=== PATIENT | female | born 1950 | race African-American/Black ===

== ENCOUNTER 2016-05-28 12:26 | Emergency (ER) | payer MEDICARE, OTHER ==
[~2016-05-28 12:26] MED LIST: Nitroglycerin 0.4 MG TAB 1 EACH ONE
[2016-05-28] MEDS ORDERED: Nitroglycerin 0.4 MG TAB 1 EACH ONE (13:31)
[2016-05-28] MEDS ORDERED: Acetaminophen 325 MG TAB ONE (13:31)
[2016-05-28] MEDS ORDERED: Nitroglycerin 2% Ointment 1 INCH/1 GM Packet ONE (13:31)
[2016-05-28 14:11] LABS: #Basophils 0.1 thou/uL (0.0-0.2); #Eosinphils 0.2 thou/uL (0.0-0.7); #Lymphocytes 2.3 thou/uL (1.20-3.40); #Monocytes 0.6 thou/uL (0.11-0.59); #Neutrophils 2.8 thou/uL (1.40-6.50); %Basophils 2.1 % (0.0-1.0); %Eosinophils 2.8 % (0.0-10.0); %Lymphocytes 38.1 % (21.0-51.0); Hemoglobin 15.8 g/dL (12.0-16.0); Mean Corpuscular HGB CONC 32.4 g/dL (32.0-36.0); Mean Corpuscular Hemoglobin 28.9 pg (27.0-31.0); Mean Corpuscular Volume 89.4 fl (81.0-99.0); Mean Platelet Volume 9.2 fL (7.4-10.4); Platelet Count 221 thou/uL (130-400); RBC Distribution Width 14.6 % (11.5-14.5); Red Blood Cell (RBC) Count 5.47 mill/uL (4.20-5.40)
--- NOTE | 2016-05-28 14:13 | CT ---
NONCONTRAST HEAD CT HISTORY: Headache. COMPARISON: 05/08/2014 TECHNIQUE: A noncontrast head CT is performed from the skull base to the skull vertex. FINDINGS: No parenchymal hemorrhage. No extraaxial hematoma. No midline shift. The basilar cisterns are pat ent. Brain volume is age appropriate. Cortical nicholson white matter differentiation is preserved. The ventricles and sulci are patent and symmetric. Adequate aeration of the sinuses and mastoid air cells. Atherosclerosis of the cavernous carotid ar teries. Intact calvarium. IMPRESSION: No acute intracranial process. POS: HUGO
[2016-05-28 14:15] LABS: ALT (SGPT) 15 U/L (0-55); Albumin 3.7 g/dL (3.4-4.8); Alkaline Phosphatase 87 U/L (40-150); Anion Gap 18 mmol/L (10-20); BUN (Urea Nitrogen) 16 mg/dL (9.8-20.1); Bilirubin, Total 0.5 mg/dL (0.2-1.2); Calc. Creatinine Clearance 0 mL/min (70-130); Calcium 9.6 mg/dL (7.8-10.44); Carbon Dioxide 24 mmol/L (23-31); Chloride 103 mmol/L (98-107); Estimated GFR-MDRD 73; Globulin 3.4 g/dL (2.4-3.5); Glucose 86 mg/dL (80-115); Potassium 4.2 mmol/L (3.5-5.1); Protein, Total 7.1 g/dL (5.8-8.1); Sodium 141 mmol/L (136-145)
[2016-05-28 14:18] LABS: AST (SGOT) 21 U/L (5-34)
--- NOTE | 2016-05-28 14:59 | ERRECORD ---
[facility] EMERGENCY RECORD HPI HEADACHE (13:40 LHOD) CHIEF COMPLAINT: Patient presents for evaluation of headache. HISTORIAN: History provided by patient. TIME COURSE: MONDAY ONSET OF DIZZINESS. REPORTS SHE FELL AND STRUCK HER HEAD ON . REPORTS OFF AND ON DIFFUSE MORAN. NO NAUSEA OR VOMITING. REPORTS SHE HAS NOT MISSED BP MEDS. LAST TOOK AT 7-8AM TODAY. PAST MEDICAL HISTORY MEDICAL HISTORY: Past medical history includes cardiac history, coronary artery disease, myocardial infarction, Treated with stent placement, Number of stents: unknown, most recent stent placed to right leg 10/02/12, Past medical history includes history of hyperlipidemia, high cholesterol, currently being treated, Past medical history includes history of hypertension, which has been treated, Patient is compliant, Past medical history includes pulmonary disease, asthma, Notes: COPD w/home neb. (12:47 SCHI) FEMALE SURGICAL HISTORY: Stents placed to bilateral legs. Unknown number of cardiac stents placed, Surgical history of orthopedic surgery, Left hip replacement x 2, Surgical history of tubal ligation. (12:47 SCHI) SOCIAL HISTORY: Patient drinks every day, Patient denies drug use, Patient currently uses tobacco, smokes cigarettes, Patient smokes 1/2 packs per day, Lives at home, alone, Patient denies drug use,. (12:47 SCHI) NOTES: Nursing records reviewed. (12:48 LHOD) KNOWN ALLERGIES No Known Drug Allergies CURRENT MEDICATIONS (13:06 SCHI) lisinopril-hydrochlorothiazide: TABLET : Strength - 20 mg-25 mg : ORAL Patient Dose: 2 times a day. isosorbide mononitrate: TABLET, EXTENDED RELEASE 24 HR : Strength - 30 mg : ORAL Patient Dose: 1 cap(s) Oral once a day. potassium chloride: TABLET, EXT RELEASE, PARTICLES/CRYSTALS : Strength - 20 mEq : ORAL Patient Dose: once a day. Lyrica: CAPSULE : Strength - 100 mg : ORAL Patient Dose: 25 mg Oral 2 times a day. meTOPROLOL tartrate: TABLET : Strength - 25 mg : ORAL Patient Dose: 1 tab(s) Oral 2 times a day. pravastatin: TABLET : Strength - 40 mg : ORAL Patient Dose: once a day (at bedtime). VITAL SIGNS &a-1R&a+25V*p+0X*f2590M*c152B*c15G*c2P*p-0X&a-25V&a+1RName: Candace Upton : F66 MedRec: [id number] AcctNum: [id number] Prepared: Sat May 28, 2016 14:57 by Interface Page 1 of 2 pMD [facility] EMERGENCY RECORD VITAL SIGNS: BP: 192/80, Pulse: 58, Resp: 20, Temp: 98.1 (Tympanic), Pain: 8 (Constant), O2 sat: 99 on Room Air, Time: 05/28/2016 12:44. (12:44 SCHI) BP: 203/80 (Left Arm), Time: 05/28/2016 12:47. (12:47 SCHI) BP: 197/79, Pulse: 53, Resp: 20, O2 sat: 96 on Room Air, Time: 05/28/2016 13:06. (13:06 SCHI) BP: 219/83, Time: 05/28/2016 13:45. (13:45 SCHI) BP: 208/80, Time: 05/28/2016 13:50. (13:50 SCHI) BP: 188/78, Pulse: 52, Resp: 18, Pain: 4, O2 sat: 97 on Room Air, Time: 05/28/2016 14:08. (14:08 SCHI) BP: 181/73, Pulse: 69, Time: 05/28/2016 14:14. (14:14 SCHI) BP: 185/75, Pulse: 50, Resp: 20, Temp: 98.1 (Tympanic), Pain: 3, O2 sat: 97 on Room Air, Time: 05/28/2016 14:39. (14:39 SCHI) RADIOLOGYINTERPRETATION (13:43 LHOD) HEAD: Head CT negative, without contrast. MEDICATION ADMINISTRATION SUMMARY Drug Name: nitroglycerin sublingual, Dose Ordered: 0.4 mg, Route: Sublingual, Status: Given, Time: 14:08 05/28/2016, Drug Name: Nitro-Bid transdermal, Dose Ordered: 1 inch, Route: Topical, Status: Given, Time: 13:49 05/28/2016, Drug Name: nitroglycerin sublingual, Dose Ordered: 0.4 mg, Route: Sublingual, Status: Given, Time: 13:47 05/28/2016, Drug Name: Tylenol, Dose Ordered: 650 mg, Route: Oral, Status: Given, Time: 13:40 05/28/2016, Detailed record available in Medication Service section. DOCTOR NOTES (14:33 LHOD) TEXT: 1433--LISINOPRIL/HCTZ 20MG GIVEN NOW. PROBLEM LIST No recorded problems DIAGNOSIS (14:34 LHOD) FINAL: PRIMARY: UNCONTROLLED HYPERTENSION WITH HEADACHE AND DIZZINESS. PRESCRIPTION No recorded prescriptions DISPOSITION PATIENT: Disposition Type: Discharge, Disposition: *Discharge Home, Condition: Good. (14:34 LHOD) Patient left the department. (14:54 SCHI) Lara: LHOD=MD Lisa, Frank SCHI=DEBBIE Hsuton, Lisbetinda &a-1R&a+25V*p+0X*[id number]*c152B*c15G*c2P*p-0X&a-25V&a+1RName: Candace Upton : 1950 F66 MedRec: [id number] AcctNum: [id number] Prepared: Vasiliy May 28, 2016 14:57 by Interface Page 2 of 2 pMD MTDD
--- NOTE | 2016-05-28 15:02 | ERRECORD ---
[facility] EMERGENCY RECORD HPI HEADACHE (13:40 LHOD) CHIEF COMPLAINT: Patient presents for evaluation of headache. HISTORIAN: History provided by patient. TIME COURSE: MONDAY ONSET OF DIZZINESS. REPORTS SHE FELL AND STRUCK HER HEAD ON . REPORTS OFF AND ON DIFFUSE MORAN. NO NAUSEA OR VOMITING. REPORTS SHE HAS NOT MISSED BP MEDS. LAST TOOK AT 7-8AM TODAY. ROS (15:28 LHOD) CONSTITUTIONAL: Historian denies fever. CARDIOVASCULAR: Historian denies chest pain, denies edema. RESPIRATORY: Historian denies cough, denies shortness of breath. GI: Historian denies abdominal pain, denies nausea, denies vomiting. MUSCULOSKELETAL: Historian denies back pain, denies neck pain. SKIN: Historian denies rash. NEUROLOGIC: Historian reports dizziness, reports headache. HEMO/LYMPHATIC: Historian denies easy bruising. NOTES: All systems reviewed, negative except as described above. PAST MEDICAL HISTORY MEDICAL HISTORY: Past medical history includes cardiac history, coronary artery disease, myocardial infarction, Treated with stent placement, Number of stents: unknown, most recent stent placed to right leg 10/02/12, Past medical history includes history of hyperlipidemia, high cholesterol, currently being treated, Past medical history includes history of hypertension, which has been treated, Patient is compliant, Past medical history includes pulmonary disease, asthma, Notes: COPD w/home neb. (12:47 SCHI) FEMALE SURGICAL HISTORY: Stents placed to bilateral legs. Unknown number of cardiac stents placed, Surgical history of orthopedic surgery, Left hip replacement x 2, Surgical history of tubal ligation. (12:47 SCHI) SOCIAL HISTORY: Patient drinks every day, Patient denies drug use, Patient currently uses tobacco, smokes cigarettes, Patient smokes 1/2 packs per day, Lives at home, alone, Patient denies drug use,. (12:47 SCHI) NOTES: Nursing records reviewed. (12:48 LHOD) KNOWN ALLERGIES No Known Drug Allergies CURRENT MEDICATIONS (13:06 SCHI) lisinopril-hydrochlorothiazide: TABLET : Strength - 20 mg-25 mg : ORAL Patient Dose: 2 times a day. isosorbide mononitrate: TABLET, EXTENDED RELEASE 24 HR : Strength - 30 mg : ORAL Patient Dose: 1 cap(s) Oral once a day. potassium chloride: &a-1R&a+25V*p+0X*[id number]*c152B*c15G*c2P*p-0X&a-25V&a+1RName: Candace Upton : F66 MedRec: [id number] AcctNum: [id number] Prepared: Sat May 28, 2016 15:37 by Interface Page 1 of 3 pMD [facility] EMERGENCY RECORD TABLET, EXT RELEASE, PARTICLES/CRYSTALS : Strength - 20 mEq : ORAL Patient Dose: once a day. Lyrica: CAPSULE : Strength - 100 mg : ORAL Patient Dose: 25 mg Oral 2 times a day. meTOPROLOL tartrate: TABLET : Strength - 25 mg : ORAL Patient Dose: 1 tab(s) Oral 2 times a day. pravastatin: TABLET : Strength - 40 mg : ORAL Patient Dose: once a day (at bedtime). VITAL SIGNS VITAL SIGNS: BP: 192/80, Pulse: 58, Resp: 20, Temp: 98.1 (Tympanic), Pain: 8 (Constant), O2 sat: 99 on Room Air, Time: 05/28/2016 12:44. (12:44 SCHI) BP: 203/80 (Left Arm), Time: 05/28/2016 12:47. (12:47 SCHI) BP: 197/79, Pulse: 53, Resp: 20, O2 sat: 96 on Room Air, Time: 05/28/2016 13:06. (13:06 SCHI) BP: 219/83, Time: 05/28/2016 13:45. (13:45 SCHI) BP: 208/80, Time: 05/28/2016 13:50. (13:50 SCHI) BP: 188/78, Pulse: 52, Resp: 18, Pain: 4, O2 sat: 97 on Room Air, Time: 05/28/2016 14:08. (14:08 SCHI) BP: 181/73, Pulse: 69, Time: 05/28/2016 14:14. (14:14 SCHI) BP: 185/75, Pulse: 50, Resp: 20, Temp: 98.1 (Tympanic), Pain: 3, O2 sat: 97 on Room Air, Time: 05/28/2016 14:39. (14:39 SCHI) PHYSICAL EXAM (15:29 LHOD) CONSTITUTIONAL: Vital Signs Reviewed, Patient afebrile, Pulse, bradycardic, Blood pressure, hypertensive, Respiratory rate normal, Patient appears non toxic, Patient appears, in moderate pain distress, Patient alert and oriented to person, place and time. HEAD: Head exam included findings of head atraumatic. EYES: Pupils equally round and reactive to light, Extraocular muscles intact, Conjunctiva, injected bilaterally. ENT: Ear exam normal, Pharynx exam normal. NECK: Neck exam included findings of normal range of motion, Trachea midline, no carotid bruits. RESPIRATORY CHEST: Respiratory exam included findings of no respiratory distress, Breath sounds clear. CARDIOVASCULAR: Cardiovascular exam included findings of heart rate regular rate and rhythm, Heart sounds normal. ABDOMEN FEMALE: Abdominal exam included findings of abdomen nontender. BACK: Back exam normal. UPPER EXTREMITY: Upper extremity exam normal. LOWER EXTREMITY: Lower extremity exam normal. NEURO: Neuro exam findings include patient oriented to person, place and time, Speech normal, Memory normal, Cranial nerves intact, &a-1R&a+25V*p+0X*d5294D*c152B*c15G*c2P*p-0X&a-25V&a+1RName: Candace Upton : F66 MedRec: [id number] AcctNum: [id number] Prepared: Sat May 28, 2016 15:37 by Interface Page 2 of 3 pMD [facility] EMERGENCY RECORD no focal motor deficits, no focal sensory deficits, no cerebellar deficits, no nystagmus. SKIN: no rash. EKG INTERPRETATION (15:31 LHOD) 12 LEAD EKG INTERPRETATION: 12 lead EKG interpreted by Emergency Department Physician at time of study, 12 lead EKG shows, sinus bradycardia, Rate (beats per minute): 56, with no ectopics, T waves normal, [place], left, LAE, POOR R WAVE PROGRESSION ANT. RADIOLOGYINTERPRETATION (13:43 LHOD) HEAD: Head CT negative, without contrast. MEDICATION ADMINISTRATION SUMMARY Drug Name: nitroglycerin sublingual, Dose Ordered: 0.4 mg, Route: Sublingual, Status: Given, Time: 14:08 05/28/2016, Drug Name: Nitro-Bid transdermal, Dose Ordered: 1 inch, Route: Topical, Status: Given, Time: 13:49 05/28/2016, Drug Name: nitroglycerin sublingual, Dose Ordered: 0.4 mg, Route: Sublingual, Status: Given, Time: 13:47 05/28/2016, Drug Name: Tylenol, Dose Ordered: 650 mg, Route: Oral, Status: Given, Time: 13:40 05/28/2016, Detailed record available in Medication Service section. DOCTOR NOTES (14:33 LHOD) TEXT: 1433--LISINOPRIL/HCTZ 20MG GIVEN NOW. PT STATES SHE WAS NOT AWARE SHE WAS SUPPOSE TO TAKE LISINOPRIL AND METOPROLOL BID. SHE HAS MEDS AND WILL DO SO. PROBLEM LIST No recorded problems DIAGNOSIS (14:34 LHOD) FINAL: PRIMARY: UNCONTROLLED HYPERTENSION WITH HEADACHE AND DIZZINESS. PRESCRIPTION No recorded prescriptions DISPOSITION PATIENT: Disposition Type: Discharge, Disposition: *Discharge Home, Condition: Good. (14:34 LHOD) Patient left the department. (14:54 SCHI) Lara: LHOD=MD Lisa, Frank [facility] Huston, Luis Carlos &a-1R&a+25V*p+0X*m2690T*c152B*c15G*c2P*p-0X&a-25V&a+1RName: Candace Upton : F66 MedRec: [id number] AcctNum: [id number] Prepared: Vasiliy May 28, 2016 15:37 by Interface Page 3 of 3 pMD MTDD
--- NOTE | 2016-05-28 15:05 | PICIS ---
[facility] EMERGENCY RECORD TRIAGE (12:46 SCHI) TRIAGE NOTES: BP ELEVATED. (12:46 SCHI) PATIENT: NAME: Candace Upton, AGE: 66, GENDER: female, : Mon1950, TIME OF GREET: Sat May 28, 2016 12:26, PREFERRED LANGUAGE: [place]ican, ETHNICITY: Not or , FALL RISK: NO, ECODE BILLING MAP: [facility], SSN: [id number], Zip Code: [address], KG WEIGHT: 72.57, PHONE: , , , PERSON ID: [id number], PCP: MD RICCI IMELDA. (12:46 SCHI) COMPLAINT: BP HIGH. (12:46 SCHI) ADMISSION: URGENCY: 4 Non Urgent, ADMISSION SOURCE: Home, TRANSPORT: [facility], BED: ED -04. (12:46 SCHI) ASSESSMENT: Assessment: ALERT AND ORIENTED X 4, SKIN WARM AND DRY RESP EVEN AND UNLABORED,, Symptoms began COUPLE OF DAYS. (12:47 SCHI) PAIN: Patient complains of pain described as, aching, on a scale 0-10 patient rates pain as 8, Location HEADACHE,, Pain is intermittent. (12:47 SCHI) IMMUNIZATIONS: Flu vaccine not up to date. (12:47 SCHI) TRIAGE SCREENING: Patient denies suicidal ideation, Patient denies presence of domestic violence. (12:47 SCHI) PROVIDERS: TRIAGE NURSE: Luis Carlos Huston RN. (12:46 SCHI) VITAL SIGNS: BP 192/80, Pulse 58, Resp 20, Temp 98.1, (Tympanic), Pain 8, (Constant), O2 Sat 99, on Room Air, Time 05/28/2016 12:44. (12:44 SCHI) KNOWN ALLERGIES No Known Drug Allergies CURRENT MEDICATIONS (13:06 SCHI) lisinopril-hydrochlorothiazide: TABLET : Strength - 20 mg-25 mg : ORAL Patient Dose: 2 times a day. isosorbide mononitrate: TABLET, EXTENDED RELEASE 24 HR : Strength - 30 mg : ORAL Patient Dose: 1 cap(s) Oral once a day. potassium chloride: TABLET, EXT RELEASE, PARTICLES/CRYSTALS : Strength - 20 mEq : ORAL Patient Dose: once a day. Lyrica: CAPSULE : Strength - 100 mg : ORAL Patient Dose: 25 mg Oral 2 times a day. meTOPROLOL tartrate: TABLET : Strength - 25 mg : ORAL Patient Dose: 1 tab(s) Oral 2 times a day. pravastatin: TABLET : Strength - 40 mg : ORAL Patient Dose: once a day (at bedtime). VITAL SIGNS VITAL SIGNS: BP: 192/80, Pulse: 58, Resp: 20, Temp: 98.1 &a-1R&a+25V*p+0X*e3335G*c152B*c15G*c2P*p-0X&a-25V&a+1RName: Candace Upton : F66 MedRec: [id number] AcctNum: [id number] Prepared: Sat May 28, 2016 15:44 by Interface Page 1 of 9 pMD [facility] EMERGENCY RECORD (Tympanic), Pain: 8 (Constant), O2 sat: 99 on Room Air, Time: 05/28/2016 12:44. (12:44 SCHI) BP: 203/80 (Left Arm), Time: 05/28/2016 12:47. (12:47 SCHI) BP: 197/79, Pulse: 53, Resp: 20, O2 sat: 96 on Room Air, Time: 05/28/2016 13:06. (13:06 SCHI) BP: 219/83, Time: 05/28/2016 13:45. (13:45 SCHI) BP: 208/80, Time: 05/28/2016 13:50. (13:50 SCHI) BP: 188/78, Pulse: 52, Resp: 18, Pain: 4, O2 sat: 97 on Room Air, Time: 05/28/2016 14:08. (14:08 SCHI) BP: 181/73, Pulse: 69, Time: 05/28/2016 14:14. (14:14 SCHI) BP: 185/75, Pulse: 50, Resp: 20, Temp: 98.1 (Tympanic), Pain: 3, O2 sat: 97 on Room Air, Time: 05/28/2016 14:39. (14:39 SCHI) NURSING ASSESSMENT: CARDIOVASCULAR (13:41 SCHI) CONSTITUTIONAL: Patient arrives ambulatory, Gait steady, History obtained from patient, Patient appears comfortable, Patient cooperative, Patient alert, Oriented to person, place and time, Skin warm, Skin dry, Skin normal in color, Mucous membranes pink, Mucous membranes moist, Patient is well-groomed, Patient complains of ZULEMA BLOOD PRESSURE AND HEADACHE. PAIN: No sudden onset of pain, aching pain, HEADACHE. CARDIOVASCULAR: Cardiovascular assessment findings include heart rate normal, Heart rhythm normal sinus, Heart sounds normal. RESPIRATORY/CHEST: Respiratory assessment findings include respiratory effort easy, Respirations regular, Conversing normally, no signs of distress, Breath sounds clear, no associated cough noted. NOTES: Emotional support needed and given, Patient tolerated procedure well. SAFETY: Side rails up, Cart/Stretcher in lowest position, Hospital ID band on. NURSING ASSESSMENT: FALL RISK (13:39 SCHI) FALL RISK: Fall risk assessment findings include: no history of falls (0), No bed rest greater than 2 days (0), No use of level of consciousness altering agents with mentation or cognitive changes (0), No change in blood pressure (0), No sensory deficits (0), No impaired mobility (0), No neurologic diagnosis (0), No elimination problems (0), No confusion (0), Total score 0. NURSING PROCEDURE: DISCHARGE NOTE (14:50 SCHI) DISCHARGE: Patient discharged to home, ambulating without assistance, family driving, accompanied by other family member, Summary of Care printed/ provided, Patient requested and was provided an electronic copy of Discharge Instructions, Transition record given to patient, Discharge instructions given to patient, Simple or moderate discharge teaching performed, Medication reconciliation form given, Above person(s) verbalized understanding of discharge instructions and follow-up care, Patient treated and evaluated by physician. BELONGINGS: Belongings and valuables with patient at time of discharge include:, Belongings remain with patient, Valuables remain &a-1R&a+25V*p+0X*s9507L*c152B*c15G*c2P*p-0X&a-25V&a+1RName: Candace Upton Seda : F66 MedRec: [id number] AcctNum: [id number] Prepared: Vasiliy May 28, 2016 15:44 by Interface Page 2 of 9 pMD [facility] EMERGENCY RECORD with patient. SAFETY: Side rails up, Cart/Stretcher in lowest position, Family at bedside, Hospital ID band on. NURSING PROCEDURE: EKG CHART (13:41 SCHI) PATIENT IDENTIFIER: Patient actively involved in identification process, Patient's identity verified by patient stating name, Patient's identity verified by patient stating date. EKG: EKG indicated for complaint of palpitations, 12 lead EKG performed on the left chest, done by ALLISON LEWIS. NOTES: Emotional support needed and given, Patient tolerated procedure well. SAFETY: Side rails up, Cart/Stretcher in lowest position, Family at bedside, Hospital ID band on. NURSING PROCEDURE: IV PATIENT IDENITIFIER: Patient actively involved in identification process, Patient's identity verified by patient stating name, Patient's identity verified by patient stating date, Patient's identity verified by hospital ID bracelet. (13:45 SCHI) IV SITE 1: IV therapy indicated for hydration, IV therapy indicated for medication administration, IV established, to the right antecubital, using a 20 gauge catheter, in one attempt, IV site prepped with chloraprep, Saline lock established, Flushed with normal saline (mls): 10, Labs drawn at time of placement, labeled in the presence of the patient and sent to lab. (13:45 SCHI) FOLLOW-UP SITE 1: IV discontinued, due to patient being discharged, catheter intact. (14:50 SCHI) NURSING PROCEDURE: NURSE NOTES (13:39 SCHI) NURSES NOTES: Warm blanket given to patient, Notes: PT PLACED IN GOWN. Notes: all times are approximate due to care being provided, then documented. ORDER DETAILS Order Name: [facility] ED, Status: Done, Time: 13:50 05/28/2016, [facility], - Ordered for: MD Gonzalez Lefayne, - Entered by: MD Gonzalez Lefayne - Sat May 28, 2016 13:04, - Quantity: 1, Order Name: CBC with Differential, Status: Active, Time: 13:04 05/28/2016, User: OD, - Ordered for: MD Gonzalez Lefayne, - Entered by: MD Gonzalez Lefayne - Sat May 28, 2016 13:04, - Quantity: 1, Order Name: Comprehensive Metabolic Panel, Status: Active, Time: 13:04 05/28/2016, User: PATSY, - Ordered for: MD Gonzalez Lefayne, - Entered by: MD Gonzalez Lefayne - Vasiliy May 28, 2016 13:04, &a-1R&a+25V*p+0X*h4414R*c152B*c15G*c2P*p-0X&a-25V&a+1RName: Candace Upton : F66 MedRec: [id number] AcctNum: [id number] Prepared: Sat May 28, 2016 15:44 by Interface Page 3 of 9 pMD [facility] EMERGENCY RECORD - Quantity: 1, Order Name: CT Brain WO Con, Status: Active, Time: 13:04 05/28/2016, User: PATSY, - Ordered for: MD Gonzalez Lefayne, - Entered by: MD Gonzalez Lefayne - Vasiliy May 28, 2016 13:04, - Quantity: 1, Order Name: EKG 12 Lead in Emergency Room, Status: Active, Time: 13:04 05/28/2016, User: PATSY, - Ordered for: MD Gonzalez Lefayne, - Entered by: MD Gonzalez Lefayne - Vasiliy May 28, 2016 13:04, - Quantity: 1, Order Name: SALINE LOCK, Status: Done, Time: 13:50 05/28/2016, User: TALITA, - Ordered for: MD Gonzalez Lefayne, - Entered by: MD Gonzalez Lefayne - Vasiliy May 28, 2016 13:04, - Quantity: 1. MEDICATION ADMINISTRATION SUMMARY Drug Name: nitroglycerin sublingual, Dose Ordered: 0.4 mg, Route: Sublingual, Status: Given, Time: 14:08 05/28/2016, Drug Name: Nitro-Bid transdermal, Dose Ordered: 1 inch, Route: Topical, Status: Given, Time: 13:49 05/28/2016, Drug Name: nitroglycerin sublingual, Dose Ordered: 0.4 mg, Route: Sublingual, Status: Given, Time: 13:47 05/28/2016, Drug Name: Tylenol, Dose Ordered: 650 mg, Route: Oral, Status: Given, Time: 13:40 05/28/2016, Detailed record available in Medication Service section. MEDICATION SERVICE Nitro-Bid transdermal: Order: Nitro-Bid transdermal (nitroglycerin) - Dose: 1 inch : Topical Ordered by: Frank Gonzalez MD Entered by: Frank Gonzalez MD Sat May 28, 2016 13:05 , Acknowledged by: Luis Carlos Huston RN Sat May 28, 2016 13:30 Documented as given by: Luis Carlos Huston RN Sat May 28, 2016 13:49 Patient, Medication, Dose, Route and Time verified prior to administration. : Follow Up : Response assessment performed, No signs or symptoms of allergic reaction noted, REMOVED,. (14:50 SCHI) nitroglycerin sublingual: Order: nitroglycerin sublingual (nitroglycerin) - Dose: 0.4 mg : Sublingual Ordered by: Frank Gonzalez MD Entered by: Frank Gonzalez MD Sat May 28, 2016 13:05 , Acknowledged by: Luis Carlos Huston RN Sat May 28, 2016 13:30 Documented as given by: Luis Carlos Huston RN Sat May 28, 2016 13:47 Patient, Medication, Dose, Route and Time verified prior to administration. Site: Medication administered S.L., Correct patient, time, route, dose and medication confirmed prior to administration, Patient advised of actions and side-effects prior to administration, &a-1R&a+25V*p+0X*d7869Y*c152B*c15G*c2P*p-0X&a-25V&a+1RName: Candace Upton : F66 MedRec: [id number] AcctNum: [id number] Prepared: Sat May 28, 2016 15:44 by Interface Page 4 of 9 pMD [facility] EMERGENCY RECORD Allergies confirmed and medications reviewed prior to administration. nitroglycerin sublingual: Order: nitroglycerin sublingual (nitroglycerin) - Dose: 0.4 mg : Sublingual Ordered by: Frank Gonzalez MD Entered by: Frank Gonzalez MD Sat May 28, 2016 14:07 Documented as given by: Luis Carlos Huston RN Sat May 28, 2016 14:08 Patient, Medication, Dose, Route and Time verified prior to administration. Site: Medication administered S.L., Correct patient, time, route, dose and medication confirmed prior to administration, Patient advised of actions and side-effects prior to administration, Allergies confirmed and medications reviewed prior to administration. Tylenol: Order: Tylenol (acetaminophen) - Dose: 650 mg : Oral Ordered by: Frank Gonzalez MD Entered by: Frank Gonzalez MD Sat May 28, 2016 13:06 , Acknowledged by: Luis Carlos Huston RN Sat May 28, 2016 13:30 Documented as given by: Luis Carlos Huston RN Sat May 28, 2016 13:40 Patient, Medication, Dose, Route and Time verified prior to administration. Site: Medication administered P.O., Correct patient, time, route, dose and medication confirmed prior to administration, Patient advised of actions and side-effects prior to administration, Allergies confirmed and medications reviewed prior to administration. HPI HEADACHE (13:40 LHOD) CHIEF COMPLAINT: Patient presents for evaluation of headache. HISTORIAN: History provided by patient. TIME COURSE: MONDAY ONSET OF DIZZINESS. REPORTS SHE FELL AND STRUCK HER HEAD ON . REPORTS OFF AND ON DIFFUSE MORAN. NO NAUSEA OR VOMITING. REPORTS SHE HAS NOT MISSED BP MEDS. LAST TOOK AT 7-8AM TODAY. ROS (15:28 LHOD) CONSTITUTIONAL: Historian denies fever. CARDIOVASCULAR: Historian denies chest pain, denies edema. RESPIRATORY: Historian denies cough, denies shortness of breath. GI: Historian denies abdominal pain, denies nausea, denies vomiting. MUSCULOSKELETAL: Historian denies back pain, denies neck pain. SKIN: Historian denies rash. NEUROLOGIC: Historian reports dizziness, reports headache. HEMO/LYMPHATIC: Historian denies easy bruising. NOTES: All systems reviewed, negative except as described above. PAST MEDICAL HISTORY MEDICAL HISTORY: Past medical history includes cardiac history, coronary artery disease, myocardial infarction, Treated with stent placement, Number of stents: unknown, most recent stent placed to right leg 10/02/12, Past medical history includes history of &a-1R&a+25V*p+0X*b6144W*c152B*c15G*c2P*p-0X&a-25V&a+1RName: Candace Upton : F66 MedRec: [id number] AcctNum: [id number] Prepared: Vasiliy May 28, 2016 15:44 by Interface Page 5 of 9 pMD [facility] EMERGENCY RECORD hyperlipidemia, high cholesterol, currently being treated, Past medical history includes history of hypertension, which has been treated, Patient is compliant, Past medical history includes pulmonary disease, asthma, Notes: COPD w/home neb. (12:47 SCHI) FEMALE SURGICAL HISTORY: Stents placed to bilateral legs. Unknown number of cardiac stents placed, Surgical history of orthopedic surgery, Left hip replacement x 2, Surgical history of tubal ligation. (12:47 SCHI) SOCIAL HISTORY: Patient drinks every day, Patient denies drug use, Patient currently uses tobacco, smokes cigarettes, Patient smokes 1/2 packs per day, Lives at home, alone, Patient denies drug use,. (12:47 SCHI) NOTES: Nursing records reviewed. (12:48 LHOD) PHYSICAL EXAM (15:29 LHOD) CONSTITUTIONAL: Vital Signs Reviewed, Patient afebrile, Pulse, bradycardic, Blood pressure, hypertensive, Respiratory rate normal, Patient appears non toxic, Patient appears, in moderate pain distress, Patient alert and oriented to person, place and time. HEAD: Head exam included findings of head atraumatic. EYES: Pupils equally round and reactive to light, Extraocular muscles intact, Conjunctiva, injected bilaterally. ENT: Ear exam normal, Pharynx exam normal. NECK: Neck exam included findings of normal range of motion, Trachea midline, no carotid bruits. RESPIRATORY CHEST: Respiratory exam included findings of no respiratory distress, Breath sounds clear. CARDIOVASCULAR: Cardiovascular exam included findings of heart rate regular rate and rhythm, Heart sounds normal. ABDOMEN FEMALE: Abdominal exam included findings of abdomen nontender. BACK: Back exam normal. UPPER EXTREMITY: Upper extremity exam normal. LOWER EXTREMITY: Lower extremity exam normal. NEURO: Neuro exam findings include patient oriented to person, place and time, Speech normal, Memory normal, Cranial nerves intact, no focal motor deficits, no focal sensory deficits, no cerebellar deficits, no nystagmus. SKIN: no rash. LAB INTERPRETATION (15:32 LHOD) INTERPRETATION: I reviewed the lab results, CBC normal, Chemistry normal. EVENTS TRANSFER: Triage to Emergency Main ED -04. (Sat May 28, 2016 12:46 SCHI) Emergency Main ED -04 to -H02. (13:28 SCHI) Emergency Main ED -H02 to -02. (13:29 SCHI) &a-1R&a+25V*p+0X*o1397E*c152B*c15G*c2P*p-0X&a-25V&a+1RName: Candace Upton : F66 MedRec: [id number] AcctNum: [id number] Prepared: Sat May 28, 2016 15:44 by Interface Page 6 of 9 pMD [facility] EMERGENCY RECORD Removed from Emergency Main ED -02. (14:54 SCHI) RADIOLOGYINTERPRETATION (13:43 LHOD) HEAD: Head CT negative, without contrast. EKG INTERPRETATION (15:31 LHOD) 12 LEAD EKG INTERPRETATION: 12 lead EKG interpreted by Emergency Department Physician at time of study, 12 lead EKG shows, sinus bradycardia, Rate (beats per minute): 56, with no ectopics, T waves normal, [place], left, LAE, POOR R WAVE PROGRESSION ANT. DOCTOR NOTES (14:33 LHOD) TEXT: 1433--LISINOPRIL/HCTZ 20MG GIVEN NOW. PT STATES SHE WAS NOT AWARE SHE WAS SUPPOSE TO TAKE LISINOPRIL AND METOPROLOL BID. SHE HAS MEDS AND WILL DO SO. PROBLEM LIST No recorded problems DIAGNOSIS (14:34 LHOD) FINAL: PRIMARY: UNCONTROLLED HYPERTENSION WITH HEADACHE AND DIZZINESS. DISPOSITION PATIENT: Disposition Type: Discharge, Disposition: *Discharge Home, Condition: Good. (14:34 LHOD) Patient left the department. (14:54 SCHI) INSTRUCTION (14:35 LHOD) DISCHARGE: HYPERTENSION, ESTABLISHED, OUT OF CONTROL. FOLLOWUP: MD RADHAMES, P[place], [facility], [address] [place] [id number], [phone], Follow up with Primary Care Physician in 2-3 days. SPECIAL: TAKE YOUR LISINOPRIL / HCTZ TWICE PER DAY, BUT GIVEN ADDITIONAL DOSE IN ER, SO WAIT UNTIL TOMORROW TO RESUME TWICE PER DAY. *RETURN IF WORSE Follow-up with your PCP. PRESCRIPTION No recorded prescriptions IMAGING (14:52 SCHI) *DISCHARGE INSTRUCTIONS RECEIPT: Image captured from scanner. *SUPPLY CHARGE SHEET: Image captured from scanner. ADMIN DIGITAL SIGNATURE: DEBBIE Huston, Luis Carlos. (14:54 [facility] MD Lisa, Frank. (15:33 LHOD) &a-1R&a+25V*p+0X*f1303M*c152B*c15G*c2P*p-0X&a-25V&a+1RName: Candace Upton : F66 MedRec: [id number] AcctNum: [id number] Prepared: Sat May 28, 2016 15:44 by Interface Page 7 of 9 pMD [facility] EMERGENCY RECORD RESULTS RADIOLOGY: CT Brain WO Con Observe DT: Sat May 28, 2016 13:06, BR NONCONTRAST HEAD CT HISTORY: Headache. COMPARISON: 05/08/2014 TECHNIQUE: A noncontrast head CT is performed from the skull base to the skull vertex. FINDINGS: No parenchymal hemorrhage. No extraaxial hematoma. No midline shift. The basilar cisterns are pat ent. Brain volume is age appropriate. Cortical nicholson white matter differentiation is preserved. The ventricles and sulci are patent and symmetric. Adequate aeration of the sinuses and mastoid air cells. Atherosclerosis of the cavernous carotid ar teries. Intact calvarium. IMPRESSION: No acute intracranial process. POS: [facility] . (14:28 LHOD) LABORATORY: Comprehensive Metabolic Panel Collection DT: Sat May 28, 2016 13:56, Sodium 141 mmol/L, Range (136-145), Potassium 4.2 mmol/L, Range (3.5-5.1), Chloride 103 mmol/L, Range (98-107), Carbon Dioxide 24 mmol/L, Range (23-31), Anion Gap 18 mmol/L, Range (10-20), BUN (Urea Nitrogen) 16 mg/dL, Range (9.8-20.1), Creatinine 0.93 mg/dL, Range (0.6-1.1), Estimated GFR-MDRD 73 , Reference Range for Estimated GFR: Greater than 90, mL/min/1.73 m2 NOTE: The MDRD equation has not been validated for use, with the elderly (over 70 years of age), women, patients with, serious comorbid condition or persons with extremes of body size, muscle, mass, or nutritional status. , Glucose 86 mg/dL, Range (80-115), Calcium 9.6 mg/dL, Range (7.8-10.44), &a-1R&a+25V*p+0X*u9513P*c152B*c15G*c2P*p-0X&a-25V&a+1RName: Candace Upton : F66 MedRec: [id number] AcctNum: [id number] Prepared: [facility] May 28, 2016 15:44 by Interface Page 8 of 9 pMD [facility] EMERGENCY RECORD Bilirubin, Total 0.5 mg/dL, Range (0.2-1.2), Protein, Total 7.1 g/dL, Range (5.8-8.1), NOTE: Plasma values are generally 0.3 to 0.5 g/dL higher than serum values, due to the presence of fibrinogen. , Albumin 3.7 g/dL, Range (3.4-4.8), Globulin 3.4 g/dL, Range (2.4-3.5), *Alb/Glob Ratio 1.1 - L g/dL, Range (1.2-2.2), Alkaline Phosphatase 87 U/L, Range (40-150), AST (SGOT) 21 U/L, Range (5-34), ALT (SGPT) 15 U/L, Range (0-55). (14:20 LHOD) CBC with Differential Collection DT: Sat May 28, 2016 13:56, White Blood Cell (WBC) Count 6.0 thou/uL, Range (4.8-10.8), *Red Blood Cell (RBC) Count 5.47 - H mill/uL, Range (4.20-5.40), Hemoglobin 15.8 g/dL, Range (12.0-16.0), *Hematocrit 48.9 - H %, Range (36.0-47.0), Mean Corpuscular Volume 89.4 fl, Range (81.0-99.0), Mean Corpuscular Hemoglobin 28.9 pg, Range (27.0-31.0), Mean Corpuscular HGB CONC 32.4 g/dL, Range (32.0-36.0), *RBC Distribution Width 14.6 - H %, Range (11.5-14.5), Platelet Count 221 thou/uL, Range (130-400), Mean Platelet Volume 9.2 fL, Range (7.4-10.4), %Neutrophils 47.0 %, Range (42.0-75.0), %Lymphocytes 38.1 %, Range (21.0-51.0), %Monocytes 10.0 %, Range (0.0-10.0), %Eosinophils 2.8 %, Range (0.0-10.0), *%Basophils 2.1 - H %, Range (0.0-1.0), #Neutrophils 2.8 thou/uL, Range (1.40-6.50), #Lymphocytes 2.3 thou/uL, Range (1.20-3.40), *#Monocytes 0.6 - H thou/uL, Range (0.11-0.59), #Eosinphils 0.2 thou/uL, Range (0.0-0.7), #Basophils 0.1 thou/uL, Range (0.0-0.2). (14:20 LHOD) Lara: LHOD=MD Lisa, Frank SANON=DEBBIE Huston, Slinda &a-1R&a+25V*p+0X*a3740L*c152B*c15G*c2P*p-0X&a-25V&a+1RName: Candace Upton : F66 MedRec: [id number] AcctNum: [id number] Prepared: [facility] May 28, 2016 15:44 by Interface Page 9 of 9 pMD MTDD
== END 2016-05-28 14:50 | disposition home or self-care (01) ==
LOC: MADERS 12:26
DX: I10 Essential (primary) hypertension (principal); I25.2 Old myocardial infarction; I25.10 Atherosclerotic heart disease of native coronary artery without angina pectoris; E78.5 Hyperlipidemia, unspecified; E78.00 Pure hypercholesterolemia, unspecified; J44.9 Chronic obstructive pulmonary disease, unspecified; J45.909 Unspecified asthma, uncomplicated; F17.210 Nicotine dependence, cigarettes, uncomplicated; Z79.899 Other long term (current) drug therapy
CPT/HCPCS: 36415; 70450; 80053; 85025; 93005

== ENCOUNTER 2016-08-09 23:05 | Emergency (ER) | payer MEDICARE, MEDICAID ==
[~2016-08-09 23:05] MED LIST changes: +Iopamidol 370 76% 125 ML VIAL FS ONE
[2016-08-09] MEDS ORDERED: Nitroglycerin 0.4 MG TAB 1 EACH ONE (23:18)
[2016-08-09] MEDS ORDERED: Aspirin 325 MG TAB ONE (23:18)
--- NOTE | 2016-08-09 23:34 | RAD ---
AP VIEW OF THE CHEST 08/09/16 Indication: Chest pain. IMPRESSION: No acute cardiopulmonary abnormality. The examination is not appreciably changed from a comparison d ated 01/28/16. POS: [facility]
[2016-08-09] MEDS ORDERED: Metoprolol Tartrate 5 MG/5 ML VIAL ONE (23:35)
[2016-08-09 23:43] LABS: ALT (SGPT) 17 U/L (0-55); AST (SGOT) 17 U/L (5-34); Albumin 3.7 g/dL (3.4-4.8); Alkaline Phosphatase 96 U/L (40-150); Anion Gap 15 mmol/L (10-20); BUN (Urea Nitrogen) 16 mg/dL (9.8-20.1); Bilirubin, Total 0.4 mg/dL (0.2-1.2); Calc. Creatinine Clearance 0 mL/min (70-130); Calcium 9.4 mg/dL (7.8-10.44); Carbon Dioxide 24 mmol/L (23-31); Chloride 105 mmol/L (98-107); Estimated GFR-MDRD 70; Globulin 3.3 g/dL (2.4-3.5); Glucose 130 mg/dL (80-115); Potassium 3.5 mmol/L (3.5-5.1); Sodium 140 mmol/L (136-145)
[2016-08-09 23:45] LABS: CKMB 0.7 ng/mL (0-6.6); Troponin I 0.018 ng/mL (< 0.028)
[2016-08-09 23:47] LABS: Mean Corpuscular HGB CONC 33.5 g/dL (32.0-36.0); Mean Corpuscular Hemoglobin 29.1 pg (27.0-31.0); Mean Corpuscular Volume 86.8 fL (81.0-99.0); Red Blood Cell (RBC) Count 5.16 mill/uL (4.20-5.40); White Blood Cell (WBC) Count 10.3 thou/uL (4.8-10.8)
[2016-08-09 23:48] LABS: MDiff Complete? YES; Manual Diff?? YES; Platelet Count 258 thou/uL (130-400); RBC Distribution Width 13.9 % (11.5-14.5)
[2016-08-09 23:49] LABS: Eosinophils 3 % (0-10); Lymphocytes 39 % (21-51); Monocytes 3 % (0-10); Neutrophil 55 % (42-75)
[2016-08-09 23:50] LABS: RBC Morphology Normal
[2016-08-10] MEDS ORDERED: Nitroglycerin 2% Ointment 1 INCH/1 GM Packet ONE (00:48)
--- NOTE | 2016-08-10 08:12 | CT ---
PRELIMINARY REPORT/[facility]/EMERGENCY AFTER HOURS PROCEDURE: EXAM: CT Angiography Chest With Intravenous Contrast CLINICAL HISTORY: 66 years old, female; Pain; Chest pain; Left-sided chest pain; Patient HX: Pt. Complaining of chest pain to lt side radiating down lt arm started yesterday got worse today. R/O pe TECHNIQUE: Axial computed tomographic angiography images of the chest with intravenous contrast using pulmonary embolism protocol. CONTRAST: 100 mL of isovue administered intravenously. COMPARISON: No relevant prior studies available. FINDINGS: Pulmonary arteries: Unremarkable. No pulmonary embolism. Aorta: No acute findings. No thoracic aortic aneurysm. Lungs: There are a few small pulmonary nodules measuring up to 5 mm in size, indeterminate. Mild to moderate emphysema. Lungs otherwise clear allowing for motion. Pleural space: Unremarkable. No significant effusion. No pneumothorax. Heart: Unremarkable. No cardiomegaly. No significant pericardial effusion. No evidence of RV dysfunc tion. Bones/joints: No acute fracture. No dislocation. Soft tissues: Unremarkable. Lymph nodes: Unremarkable. No enlarged lymph nodes. Other findings: Cardia megaly. IMPRESSION: No acute findings. Thank you for allowing us to participate in the care of your patient. Dictated and Authenticated by: Terrance Ambrocio MD 08/10/2016 1:23 AM Central Time ([place] \T\ [place]) FINAL REPORT CT PULMONARY ANGIO STUDY: Date: 08/09/16 TECHNIQUE: Multiple axial tomograms obtained through the chest with IV enhancement in arterial phase following pulmonary angio protocol with multiplanar reconstruction and 3D postprocessing. FINDINGS: No evidence of pulmonary embolus. Chronic lung changes. 5.0 mm nodule in the left lung base is stabl e. I am in agreement with the preliminary report issued by [facility]. POS: [facility]
== END 2016-08-10 01:48 | disposition short-term general hospital (02) ==
LOC: MADERS 23:05
DX: R07.9 Chest pain, unspecified (principal); I10 Essential (primary) hypertension; I25.10 Atherosclerotic heart disease of native coronary artery without angina pectoris; I25.2 Old myocardial infarction; E78.5 Hyperlipidemia, unspecified; E78.00 Pure hypercholesterolemia, unspecified; J44.9 Chronic obstructive pulmonary disease, unspecified; J45.909 Unspecified asthma, uncomplicated; F17.210 Nicotine dependence, cigarettes, uncomplicated; Z79.899 Other long term (current) drug therapy
CPT/HCPCS: 71010; 71275; 80053; 82553; 84484; 85025; 85379; 93005; 96374; 96375; J2270

== ENCOUNTER 2016-08-17 09:46 | Outpatient (CLI) | payer MEDICAID, MEDICARE ==
[2016-08-17 10:17] LABS: #Basophils 0.2 thou/uL (0.0-0.2); #Eosinphils 0.3 thou/uL (0.0-0.7); #Lymphocytes 2.1 thou/uL (1.20-3.40); #Monocytes 0.8 thou/uL (0.11-0.59); %Basophils 2.5 % (0.0-1.0); %Eosinophils 5.3 % (0.0-10.0); %Lymphocytes 32.5 % (21.0-51.0); %Monocytes 13.3 % (0.0-10.0); %Neutrophils 46.5 % (42.0-75.0); Hemoglobin 13.6 g/dL (12.0-16.0); Mean Corpuscular HGB CONC 32.8 g/dL (32.0-36.0); Mean Corpuscular Hemoglobin 28.8 pg (27.0-31.0); Mean Platelet Volume 8.8 fL (7.4-10.4); Platelet Count 230 thou/uL (130-400); RBC Distribution Width 13.5 % (11.5-14.5); Red Blood Cell (RBC) Count 4.71 mill/uL (4.20-5.40); White Blood Cell (WBC) Count 6.3 thou/uL (4.8-10.8)
[2016-08-17 10:32] LABS: ALT (SGPT) 15 U/L (0-55); AST (SGOT) 15 U/L (5-34); Albumin 3.5 g/dL (3.4-4.8); Alkaline Phosphatase 85 U/L (40-150); Anion Gap 13 mmol/L (10-20); BUN (Urea Nitrogen) 14 mg/dL (9.8-20.1); Bilirubin, Total 0.3 mg/dL (0.2-1.2); Calc. Creatinine Clearance 0 mL/min (70-130); Calcium 9.6 mg/dL (7.8-10.44); Carbon Dioxide 23 mmol/L (23-31); Cardiac Risk 3.5 (Less than 4.5); Chloride 106 mmol/L (98-107); Cholesterol 151 mg/dL (< 200 Desired); Estimated GFR-MDRD 82; Globulin 3.4 g/dL (2.4-3.5); Glucose 87 mg/dL (80-115); HDL Cholesterol 43 mg/dL (>60 Neg Risk); LDL Cholesterol, Calculated 93 mg/dL; Potassium 3.5 mmol/L (3.5-5.1); Protein, Total 6.9 g/dL (5.8-8.1); Sodium 138 mmol/L (136-145); Triglycerides 74 mg/dL (Less than 150)
[2016-08-17 11:11] LABS: Free T4 (Free Thyroxine) 0.96 ng/dL (0.70-1.48)
== END 2016-08-17 09:47 | disposition home or self-care (01) ==
LOC: MADLABBHPM 09:46
PROVIDERS: ATTEND Family Medicine
DX: E78.2 Mixed hyperlipidemia (principal); I10 Essential (primary) hypertension
CPT/HCPCS: 36415; 80053; 80061; 84439; 84443; 85025

== ENCOUNTER 2017-04-12 11:16 | Outpatient (CLI) | payer MEDICARE, MEDICAID ==
[2017-04-12 12:42] LABS: Hemoglobin A1c 5.5 % (4.0-6.0)
[2017-04-12 12:49] LABS: ALT (SGPT) 16 U/L (8-55); AST (SGOT) 14 U/L (5-34); Albumin 3.7 g/dL (3.4-4.8); Alkaline Phosphatase 79 U/L (40-150); Anion Gap 16 mmol/L (10-20); BUN (Urea Nitrogen) 15 mg/dL (9.8-20.1); Bilirubin, Total 0.4 mg/dL (0.2-1.2); Calc. Creatinine Clearance 0 mL/min (70-130); Carbon Dioxide 25 mmol/L (23-31); Chloride 103 mmol/L (98-107); Cholesterol 157 mg/dl (< 200 Desired); Estimated GFR-MDRD 67; Globulin 3.7 g/dL (2.4-3.5); Glucose 93 mg/dL (80-115); HDL Cholesterol 53 mg/dL (>60 Neg Risk); LDL Cholesterol, Calculated 91 mg/dL; Potassium 3.9 mmol/L (3.5-5.1); Protein, Total 7.4 g/dL (6.0-8.3); Sodium 140 mmol/L (136-145); Triglycerides 64 mg/dL (Less than 150)
--- NOTE | 2017-04-12 13:24 | RAD ---
THREE VIEWS RIGHT SHOULDER: Indication: Chronic right shoulder pain. Comparison: Prior chest radiograph, 08-26-16. FINDINGS: There is moderate AC joint osteoarthrosis. Visualized right lung is clear. There is some degenerative changes seen involving the right greater tuberosity which can be seen with chronic rotator cuff tend inopathy. No definite acute fracture or subluxation is evident. IMPRESSION: 1. 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 2. Degenerative changes seen involving the right greater tuberosity likely related to idiopathic morris ge from rotator cuff tendinopathy. If clinically indicated a follow up MRI of the right shoulder may be helpful to evaluate for rotator cuff disease. POS: [facility]
== END 2017-04-12 11:17 | disposition home or self-care (01) ==
LOC: MADLABBHPM 11:16
PROVIDERS: ATTEND Family Medicine
DX: M25.511 Pain in right shoulder (principal); E78.2 Mixed hyperlipidemia; I10 Essential (primary) hypertension; M19.011 Primary osteoarthritis, right shoulder
CPT/HCPCS: 36415; 80053; 80061; 83036

== ENCOUNTER 2017-05-17 09:02 | Emergency (ER) | payer MEDICARE ==
[2017-05-17] MEDS ORDERED: predniSONE 20 MG TAB ONE (09:42)
== END 2017-05-17 10:21 | disposition home or self-care (01) ==
LOC: MADERS 09:02
DX: J45.901 Unspecified asthma with (acute) exacerbation (principal); I25.10 Atherosclerotic heart disease of native coronary artery without angina pectoris; I10 Essential (primary) hypertension; J44.9 Chronic obstructive pulmonary disease, unspecified; F17.210 Nicotine dependence, cigarettes, uncomplicated
CPT/HCPCS: 94640; 94760; J7506; J7620

== ENCOUNTER 2017-05-27 14:52 | Emergency (ER) | payer MEDICARE, MEDICAID ==
[2017-05-27] MEDS ORDERED: HYDROcodone/Acetaminophen 10/325 mg Tablet ONE (15:22)
[2017-05-27 15:33] LABS: #Basophils 0.1 thou/uL (0.0-0.2); #Eosinphils 0.1 thou/uL (0.0-0.7); #Lymphocytes 2.3 thou/uL (1.20-3.40); #Monocytes 0.7 thou/uL (0.11-0.59); #Neutrophils 2.8 thou/uL (1.40-6.50); %Basophils 1.9 % (0.0-1.0); %Eosinophils 1.4 % (0.0-10.0); %Lymphocytes 38.3 % (21.0-51.0); %Monocytes 12.2 % (0.0-10.0); %Neutrophils 46.2 % (42.0-75.0); Mean Corpuscular HGB CONC 31.2 g/dL (32.0-36.0); Mean Corpuscular Hemoglobin 27.5 pg (27.0-31.0); Mean Corpuscular Volume 88.1 fl (81.0-99.0); Mean Platelet Volume 8.2 fL (7.4-10.4); Platelet Count 290 thou/uL (130-400); RBC Distribution Width 14.5 % (11.5-14.5); Red Blood Cell (RBC) Count 5.46 mill/uL (4.20-5.40)
[2017-05-27 15:44] LABS: Anion Gap 15 mmol/L (10-20); BUN (Urea Nitrogen) 15 mg/dL (9.8-20.1); Calc. Creatinine Clearance 0 mL/min (70-130); Calcium 10.2 mg/dL (7.8-10.44); Carbon Dioxide 25 mmol/L (23-31); Chloride 103 mmol/L (98-107); Estimated GFR-MDRD 64; Glucose 115 mg/dL (80-115); Potassium 3.4 mmol/L (3.5-5.1); Sodium 140 mmol/L (136-145)
[2017-05-27 17:06] LABS: Bilirubin Small (Negative); Blood, Urine Negative (Negative); Clarity Slightly Cloudy (Clear); Glucose, Urine (Dipstick) Negative (Negative); Leukocyte Negative (Negative); Nitrite Negative (Negative); Protein, Urine (Dipstick) Negative (Neg-Trace)
== END 2017-05-27 17:20 | disposition home or self-care (01) ==
LOC: MADERS 14:52
DX: R10.32 Left lower quadrant pain (principal); I25.10 Atherosclerotic heart disease of native coronary artery without angina pectoris; J44.9 Chronic obstructive pulmonary disease, unspecified; F17.210 Nicotine dependence, cigarettes, uncomplicated; I25.2 Old myocardial infarction; Z79.899 Other long term (current) drug therapy
CPT/HCPCS: 36415; 80048; 81003; 85025; 99284

== ENCOUNTER 2017-07-12 18:09 | Emergency (ER) | payer MEDICAID, MEDICARE ==
[2017-07-12 18:39] LABS: #Basophils 0.1 thou/uL (0.0-0.2); #Eosinphils 0.2 thou/uL (0.0-0.7); #Lymphocytes 2.1 thou/uL (1.20-3.40); #Monocytes 0.6 thou/uL (0.11-0.59); #Neutrophils 2.7 thou/uL (1.40-6.50); %Eosinophils 2.9 % (0.0-10.0); %Lymphocytes 37.2 % (21.0-51.0); %Monocytes 10.7 % (0.0-10.0); %Neutrophils 47.2 % (42.0-75.0); Hemoglobin 13.7 g/dL (12.0-16.0); Mean Corpuscular HGB CONC 31.6 g/dL (32.0-36.0); Mean Corpuscular Hemoglobin 28.5 pg (27.0-31.0); Mean Corpuscular Volume 90.2 fl (81.0-99.0); Mean Platelet Volume 8.2 fL (7.4-10.4); Platelet Count 203 thou/uL (130-400); RBC Distribution Width 16.4 % (11.5-14.5); Red Blood Cell (RBC) Count 4.79 mill/uL (4.20-5.40); White Blood Cell (WBC) Count 5.7 thou/uL (4.8-10.8)
[2017-07-12 18:48] LABS: INR-International Normal Ratio 1.1; PTT 25.9 SEC (22.9-36.1); Prothrombin Time 13.8 SEC (12.0-14.7)
[2017-07-12] MEDS ORDERED: Aspirin 325 MG TAB ONE (18:54)
[2017-07-12 19:00] LABS: ALT (SGPT) 12 U/L (8-55); AST (SGOT) 13 U/L (5-34); Albumin 3.7 g/dL (3.4-4.8); Alkaline Phosphatase 87 U/L (40-150); Anion Gap 14 mmol/L (10-20); BUN (Urea Nitrogen) 19 mg/dL (9.8-20.1); Bilirubin, Total 0.3 mg/dL (0.2-1.2); CK (CPK) 30 U/L (29-168); Calc. Creatinine Clearance 0 mL/min (70-130); Calcium 9.5 mg/dL (7.8-10.44); Carbon Dioxide 24 mmol/L (23-31); Chloride 110 mmol/L (98-107); Estimated GFR-MDRD 58; Globulin 3.3 g/dL (2.4-3.5); Glucose 92 mg/dL (80-115); Potassium 3.9 mmol/L (3.5-5.1); Sodium 144 mmol/L (136-145)
[2017-07-12 19:01] LABS: CKMB 0.9 ng/mL (0-6.6); Troponin I 0.023 ng/mL (< 0.028)
--- NOTE | 2017-07-12 19:05 | RAD ---
PORTABLE CHEST: 07/12/17 HISTORY: Chest pain. COMPARISON: 08/26/16. FINDINGS/IMPRESSION: Mild cardiomegaly. Mild vascular engorgement. Mild interstitial prominence could represent mild inter stitial congestion. No confluent infiltrate and no significant effusion. POS: [facility]
[2017-07-12] MEDS ORDERED: Acetaminophen/Codeine 30-300mg Tablet ONE (20:28)
== END 2017-07-12 20:39 | disposition home or self-care (01) ==
LOC: MADERS 18:09
DX: R07.89 Other chest pain (principal); F17.210 Nicotine dependence, cigarettes, uncomplicated; I25.2 Old myocardial infarction; I10 Essential (primary) hypertension; I25.10 Atherosclerotic heart disease of native coronary artery without angina pectoris; J44.9 Chronic obstructive pulmonary disease, unspecified; E78.00 Pure hypercholesterolemia, unspecified; Z79.82 Long term (current) use of aspirin; Z79.899 Other long term (current) drug therapy
CPT/HCPCS: 71045; 80053; 82553; 83880; 84484; 85025; 85610; 85730; 93005; 94760

== ENCOUNTER 2017-10-15 08:17 | Emergency (ER) | payer MEDICAID, MEDICARE ==
[2017-10-15] MEDS ORDERED: cloNIDine 0.1 MG TAB ONE (08:47)
[2017-10-15] MEDS ORDERED: Hydrochlorothiazide 25 MG TAB ONE (08:47)
[2017-10-15] MEDS ORDERED: Amlodipine 5 MG TAB ONE (08:47)
== END 2017-10-15 08:50 | disposition home or self-care (01) ==
LOC: MADERS 08:17
DX: I10 Essential (primary) hypertension (principal); Z79.899 Other long term (current) drug therapy; Z79.82 Long term (current) use of aspirin; E78.5 Hyperlipidemia, unspecified
CPT/HCPCS: 99283

== ENCOUNTER 2018-04-30 16:59 | Emergency (ER) | payer MEDICARE ==
[2018-04-30] MEDS ORDERED: Metoprolol Tartrate 5 MG/5 ML VIAL ONE (17:21)
[2018-04-30] MEDS ORDERED: Morphine 4 MG/ML VIAL ONE (17:21)
[2018-04-30] MEDS ORDERED: predniSONE 20 MG TAB ONE (17:21)
[2018-04-30] MEDS ORDERED: diphenhydrAMINE 50 MG/ML VIAL ONE (17:21)
[2018-04-30 17:45] LABS: ALT (SGPT) 14 U/L (8-55); AST (SGOT) 16 U/L (5-34); Albumin 3.9 g/dL (3.4-4.8); Alkaline Phosphatase 94 U/L (40-150); Anion Gap 16 mmol/L (10-20); BUN (Urea Nitrogen) 15 mg/dL (9.8-20.1); Bilirubin, Total 0.6 mg/dL (0.2-1.2); Calc. Creatinine Clearance 0 mL/min (70-130); Calcium 10.1 mg/dL (7.8-10.44); Carbon Dioxide 24 mmol/L (23-31); Chloride 101 mmol/L (98-107); Estimated GFR-MDRD 40; Globulin 3.9 g/dL (2.4-3.5); Glucose 99 mg/dL (80-115); Lipase 24 U/L (8-78); Potassium 3.7 mmol/L (3.5-5.1); Protein, Total 7.8 g/dL (6.0-8.3); Sodium 137 mmol/L (136-145)
[2018-04-30 17:56] LABS: Band 2 % (5-11); Eosinophils 2 % (0-10); Hemoglobin 15.3 g/dL (12.0-16.0); Lymphocytes 12 % (21-51); MDiff Complete? YES; Mean Corpuscular HGB CONC 31.2 g/dL (32.0-36.0); Mean Corpuscular Hemoglobin 26.9 pg (27.0-31.0); Mean Corpuscular Volume 86.5 fL (78.0-98.0); Mean Platelet Volume 7.9 fL (7.4-10.4); Monocytes 10 % (0-10); Neutrophil 74 % (42-75); PLT Morphology Comment Appears Adequate; Platelet Count 264 thou/uL (130-400); Red Blood Cell (RBC) Count 5.66 mill/uL (4.20-5.40); White Blood Cell (WBC) Count 6.9 thou/uL (4.8-10.8)
--- NOTE | 2018-04-30 18:46 | RAD ---
PORTABLE AP CHEST X-RAY: 04/30/2018 HISTORY: Chest pain. COMPARISON: 07/12/2017 FINDINGS: The cardiac silhouette is magnified by projection and stable in size. There does appear to be mild i nterstitial prominence. There is no consolidation or pleural fluid seen. Vascular calcification is seen in the thoracic aorta. No other interval change. IMPRESSION: Mild interstitial prominence, which could be related to an element of pulmonary edema. POS: TOM
== END 2018-04-30 19:20 | disposition short-term general hospital (02) ==
LOC: MADERS 16:59
DX: R07.89 Other chest pain (principal); I10 Essential (primary) hypertension; E11.9 Type 2 diabetes mellitus without complications; Z79.899 Other long term (current) drug therapy; Z79.82 Long term (current) use of aspirin; Z79.891 Long term (current) use of opiate analgesic
CPT/HCPCS: 71045; 80053; 83690; 83880; 84484; 85025; 93005; 94760; 96374; 96375; J1200; J2270; J7506

== ENCOUNTER 2019-03-24 11:26 | Emergency (ER) | payer MEDICARE ==
--- NOTE | 2019-03-24 11:56 | RAD ---
Portable frontal chest radiograph: 03/24/2019 COMPARISON: 04/30/2018 HISTORY: Chest pain FINDINGS: Stable prominence of the cardiac silhouette and mild interstitial prominence with no pneumo thorax, pleural fluid, focal consolidation, or alveolar edema. IMPRESSION: No significant interval change.
[2019-03-24 12:10] LABS: #Basophils 0.1 thou/uL (0.0-0.2); #Eosinphils 0.2 thou/uL (0.0-0.7); #Lymphocytes 2.1 thou/uL (1.20-3.40); #Monocytes 0.7 thou/uL (0.11-0.59); #Neutrophils 3.1 thou/uL (1.40-6.50); %Basophils 2.2 % (0.0-1.0); %Eosinophils 2.7 % (0.0-10.0); %Monocytes 11.8 % (0.0-10.0); %Neutrophils 49.3 % (42.0-75.0); Hemoglobin 14.7 g/dL (12.0-16.0); Mean Corpuscular Volume 86.7 fL (78.0-98.0); Mean Platelet Volume 7.5 fL (7.4-10.4); Platelet Count 302 thou/uL (130-400); RBC Distribution Width 14.5 % (11.5-14.5); Red Blood Cell (RBC) Count 5.66 mill/uL (4.20-5.40); White Blood Cell (WBC) Count 6.3 thou/uL (4.8-10.8)
[2019-03-24 12:30] LABS: ALT (SGPT) 24 U/L (8-55); AST (SGOT) 21 U/L (5-34); Albumin 3.9 g/dL (3.4-4.8); Alkaline Phosphatase 97 U/L (40-110); Anion Gap 15 mmol/L (10-20); BUN (Urea Nitrogen) 9 mg/dL (9.8-20.1); Bilirubin, Total 0.3 mg/dL (0.2-1.2); Calc. Creatinine Clearance 0 mL/min (70-130); Calcium 9.9 mg/dL (7.8-10.44); Carbon Dioxide 25 mmol/L (23-31); Chloride 103 mmol/L (98-107); Estimated GFR-MDRD 74; Globulin 3.8 g/dL (2.4-3.5); Glucose 87 mg/dL (80-115); Potassium 3.7 mmol/L (3.5-5.1); Protein, Total 7.7 g/dL (6.0-8.3); Sodium 139 mmol/L (136-145)
[2019-03-24] MEDS ORDERED: Ibuprofen 600 MG TAB ONE (13:07)
[2019-03-24] MEDS ORDERED: Acetaminophen 325 MG TAB ONE (13:07)
== END 2019-03-24 14:47 | disposition short-term general hospital (02) ==
LOC: MADERS 11:26
DX: R07.2 Precordial pain (principal); I10 Essential (primary) hypertension; J44.9 Chronic obstructive pulmonary disease, unspecified; I25.10 Atherosclerotic heart disease of native coronary artery without angina pectoris; I25.2 Old myocardial infarction; F17.210 Nicotine dependence, cigarettes, uncomplicated; Z79.899 Other long term (current) drug therapy; Z79.82 Long term (current) use of aspirin; Z79.01 Long term (current) use of anticoagulants
CPT/HCPCS: 36415; 71045; 80053; 82550; 83880; 84484; 85025; 94760

== ENCOUNTER 2019-04-18 10:29 | Outpatient (CLI) | payer MEDICARE ==
[2019-04-18 10:54] LABS: Anion Gap 15 mmol/L (10-20); BUN (Urea Nitrogen) 13 mg/dL (9.8-20.1); Calc. Creatinine Clearance 0 mL/min (70-130); Calcium 9.9 mg/dL (7.8-10.44); Carbon Dioxide 24 mmol/L (23-31); Chloride 107 mmol/L (98-107); Estimated GFR-MDRD 66; Glucose 85 mg/dL (80-115); Sodium 140 mmol/L (136-145)
[2019-04-18 10:55] LABS: Potassium 5.6 mmol/L (3.5-5.1)
== END 2019-04-18 10:30 | disposition home or self-care (01) ==
LOC: MADLABBHPM 10:29
PROVIDERS: ATTEND Family Medicine
DX: I10 Essential (primary) hypertension (principal)
CPT/HCPCS: 36415; 80048

== ENCOUNTER 2019-04-22 13:35 | Outpatient (CLI) | payer MEDICARE ==
[2019-04-22 14:09] LABS: Anion Gap 13 mmol/L (10-20); BUN (Urea Nitrogen) 7 mg/dL (9.8-20.1); Calc. Creatinine Clearance 0 mL/min (70-130); Calcium 9.5 mg/dL (7.8-10.44); Carbon Dioxide 24 mmol/L (23-31); Chloride 109 mmol/L (98-107); Estimated GFR-MDRD 86; Glucose 85 mg/dL (80-115); Sodium 142 mmol/L (136-145)
== END 2019-04-22 13:36 | disposition home or self-care (01) ==
LOC: MADLABBHPM 13:35
PROVIDERS: ATTEND Family Medicine
DX: E87.5 Hyperkalemia (principal)
CPT/HCPCS: 36415; 80048

== ENCOUNTER 2020-03-11 15:22 | Emergency (ER) | payer MEDICARE ==
[~2020-03-11 15:22] MED LIST changes: -Nitroglycerin 0.4 MG TAB 1 EACH ONE
[2020-03-11] MEDS ORDERED: Naproxen 500 MG TAB ONE (15:59)
[2020-03-11] MEDS ORDERED: methylPREDNISolone Sod Succ/PF 125 MG/2 ML VIAL ONE (15:59)
[2020-03-11] MEDS ORDERED: Aspirin Chewable 81 MG TAB ONE ×2 (15:59→16:01)
[2020-03-11] MEDS ORDERED: cefTRIAXone\\ROCEPHIN 1 GM VIAL ONE (15:59)
[2020-03-11] MEDS ORDERED: Azithromycin 500 MG VIAL ONE (15:59)
[2020-03-11] MEDS ORDERED: Sodium Chloride 0.9% 100 ML ONE (15:59)
[2020-03-11] MEDS ORDERED: Nitroglycerin 2% Ointment 1 INCH/1 GM Packet ONE (15:59)
--- NOTE | 2020-03-11 16:16 | RAD ---
XR Chest 1 View Portable HISTORY: Dyspnea COMPARISON: 03/24/2019 FINDINGS: The heart size is normal. The lungs are well expanded without focal areas of consolidation, pneumothorax or pleural effusions. The aorta is tortuous. There are degenerative changes in the spine.. IMPRESSION: No radiographic evidence of acute cardiopulmonary process.
[2020-03-11 16:22] LABS: ALT (SGPT) 17 U/L (8-55); AST (SGOT) 18 U/L (5-34); Alkaline Phosphatase 90 U/L (40-110); Anion Gap 15 mmol/L (10-20); BUN (Urea Nitrogen) 7 mg/dL (9.8-20.1); Bilirubin, Total 0.2 mg/dL (0.2-1.2); CK (CPK) 28 U/L (29-168); Calc. Creatinine Clearance 0 mL/min (70-130); Calcium 9.8 mg/dL (7.8-10.44); Carbon Dioxide 25 mmol/L (23-31); Chloride 101 mmol/L (98-107); Estimated GFR-MDRD 76; Globulin 3.4 g/dL (2.4-3.5); Glucose 121 mg/dL (83-110); Lipase 43 U/L (8-78); Potassium 3.7 mmol/L (3.5-5.1); Protein, Total 7.4 g/dL (6.0-8.3); Sodium 137 mmol/L (136-145)
[2020-03-11 16:26] LABS: Eosinophils 3 % (0-10); Hemoglobin 14.5 g/dL (12.0-16.0); Lymphocytes 12 % (21-51); MDiff Complete? YES; Mean Corpuscular HGB CONC 31.3 g/dL (32.0-36.0); Mean Corpuscular Hemoglobin 27.5 pg (27.0-31.0); Mean Corpuscular Volume 87.7 fL (78.0-98.0); Mean Platelet Volume 7.4 fL (7.4-10.4); Monocytes 9 % (0-10); Neutrophil 54 % (42-75); Platelet Count 271 thou/uL (130-400); Platelet Morphology Comment Appears Adequate; RBC Distribution Width 15.8 % (11.5-14.5); RBC Morphology Normal; Reactive Lymphocytes 22 % (0-10); Red Blood Cell (RBC) Count 5.28 mill/uL (4.20-5.40); White Blood Cell (WBC) Count 6.7 thou/uL (4.8-10.8)
[2020-03-11 17:01] LABS: Bilirubin Negative (Negative); Blood, Urine Small (Negative); Glucose, Urine (Dipstick) Negative (Negative); Ketone, Urine Negative (Negative); Leukocyte Negative (Negative); Nitrite Negative (Negative); Protein, Urine (Dipstick) Negative (Neg-Trace); Urobilinogen 0.2 mg/dL (Less than 2)
[2020-03-11 17:14] LABS: Clarity Hazy (Clear)
[2020-03-11 17:20] LABS: Bacteria/HPF Rare-Few HPF (None Seen); RBC/HPF 0-3 HPF (0-3); WBC/HPF None Seen HPF (0-3)
--- NOTE | 2020-03-11 17:42 | CT ---
CT arteriogram chest with IV contrast and 3-D imaging HISTORY: Chest pain. Dyspnea. COMPARISON: 05/01/2018. FINDINGS: There is good contrast opacification pulmonary arteries and thoracic aorta with normal bran ruben of the great vessels at the aortic arch. There is calcification within the arterial structures. Lungs remain hyperinflated with mild emphysematous changes and scattered mild linear scarring. No lob ar consolidation or pleural fluid. At the left posterolateral lung base is a new slightly irregular shaped 0.5 cm noncalcified nodular d ensity immediately under the pleural surface. No other nodules. IMPRESSION : No evidence of pulmonary embolus. Atherosclerosis. New subpleural nodule left lower lobe 0.5 cm. Please consider follow-up CT chest in 6 months to evalu ate for any enlargement. Emphysema.
[2020-03-12 12:13] LABS: SARS-CoV-2 MS2 Positive; SARS-CoV-2 N Gene Negative; SARS-CoV-2 S Gene Negative; SARS-CoV-2 by NAA Not Detected (NotDetected); SARS-CoV-2 orf1ab Negative
== END 2020-03-11 18:10 | disposition home or self-care (01) ==
LOC: MADERS 15:22
DX: J44.1 Chronic obstructive pulmonary disease with (acute) exacerbation (principal); I10 Essential (primary) hypertension; I25.2 Old myocardial infarction; I25.10 Atherosclerotic heart disease of native coronary artery without angina pectoris; F17.210 Nicotine dependence, cigarettes, uncomplicated; G62.9 Polyneuropathy, unspecified; Z79.899 Other long term (current) drug therapy; Z79.82 Long term (current) use of aspirin
CPT/HCPCS: 71045; 71275; 80053; 82550; 83605; 83690; 84484; 85025; 85379; 87040; 87086; 87804 ×2; 93005; 96365; 96367; 96375; 99285; U0003; 36415; 81003; 81015; 87635; J0456; J0696; J2930; J3490; J7050; J7620; Q9967

== ENCOUNTER 2020-07-15 08:52 | Outpatient (CLI) | payer MEDICARE ==
[2020-07-15 09:05] LABS: #Basophils 0.1 thou/uL (0.0-0.2); #Eosinphils 0.2 thou/uL (0.0-0.7); #Lymphocytes 1.5 thou/uL (1.20-3.40); #Monocytes 0.7 thou/uL (0.11-0.59); #Neutrophils 2.4 thou/uL (1.40-6.50); %Basophils 1.9 % (0.0-1.0); %Eosinophils 4.1 % (0.0-10.0); %Lymphocytes 30.8 % (21.0-51.0); %Neutrophils 49.2 % (42.0-75.0); Hemoglobin 14.3 g/dL (12.0-16.0); Mean Corpuscular HGB CONC 32.1 g/dL (32.0-36.0); Mean Corpuscular Hemoglobin 27.4 pg (27.0-31.0); Mean Corpuscular Volume 85.5 fL (78.0-98.0); Mean Platelet Volume 6.4 fL (7.4-10.4); Platelet Count 275 thou/uL (130-400); RBC Distribution Width 13.2 % (11.5-14.5); Red Blood Cell (RBC) Count 5.22 mill/uL (4.20-5.40); White Blood Cell (WBC) Count 4.8 thou/uL (4.8-10.8)
[2020-07-15 09:23] LABS: ALT (SGPT) 16 U/L (8-55); AST (SGOT) 18 U/L (5-34); Albumin 3.9 g/dL (3.4-4.8); Alkaline Phosphatase 90 U/L (40-110); Anion Gap 13 mmol/L (10-20); BUN (Urea Nitrogen) 11 mg/dL (9.8-20.1); Bilirubin, Total 0.4 mg/dL (0.2-1.2); Calc. Creatinine Clearance 0 mL/min (70-130); Calcium 9.3 mg/dL (7.8-10.44); Carbon Dioxide 27 mmol/L (23-31); Cardiac Risk 2.1 (Less than 4.5); Chloride 96 mmol/L (98-107); Cholesterol 159 mg/dl (< 200 Desired); Globulin 3.4 g/dL (2.4-3.5); Glucose 99 mg/dL (83-110); HDL Cholesterol 74 mg/dL (>60 Neg Risk); LDL Cholesterol, Calculated 70 mg/dL; Potassium 3.4 mmol/L (3.5-5.1); Protein, Total 7.3 g/dL (5.8-8.1); Sodium 133 mmol/L (136-145); Triglycerides 76 mg/dL (Less than 150)
== END 2020-07-15 08:53 | disposition home or self-care (01) ==
LOC: MADLAB 08:52
PROVIDERS: ATTEND Family Medicine
DX: E78.2 Mixed hyperlipidemia (principal); I10 Essential (primary) hypertension; R19.5 Other fecal abnormalities
CPT/HCPCS: 36415; 80053; 80061; 85025

== ENCOUNTER 2020-12-01 17:25 | Emergency (ER) | payer MEDICARE ==
[2020-12-01] MEDS ORDERED: Dexamethasone 4 MG TAB ONE (18:11)
[2020-12-01] MEDS ORDERED: Cyclobenzaprine 10 MG TAB ONE (18:11)
[2020-12-01] MEDS ORDERED: Acetaminophen 500 MG TAB ONE (18:11)
== END 2020-12-01 18:40 | disposition home or self-care (01) ==
LOC: MADERS 17:25
DX: M53.3 Sacrococcygeal disorders, not elsewhere classified (principal); I10 Essential (primary) hypertension; J44.9 Chronic obstructive pulmonary disease, unspecified; I25.10 Atherosclerotic heart disease of native coronary artery without angina pectoris; I25.2 Old myocardial infarction; G62.9 Polyneuropathy, unspecified; F17.210 Nicotine dependence, cigarettes, uncomplicated; Z79.899 Other long term (current) drug therapy; Z79.82 Long term (current) use of aspirin
CPT/HCPCS: 99283; J8540

== ENCOUNTER 2021-01-21 15:20 | Emergency (ER) | payer MEDICARE ==
[2021-01-21] MEDS ORDERED: Aspirin Chewable 81 MG TAB ONE (15:50)
[2021-01-21] MEDS ORDERED: Nitroglycerin 2% Ointment 1 INCH/1 GM Packet ONE (15:50)
[2021-01-21 16:02] LABS: #Basophils 0.1 thou/uL (0.0-0.2); #Eosinphils 0.1 thou/uL (0.0-0.7); #Lymphocytes 1.5 thou/uL (1.20-3.40); #Monocytes 0.9 thou/uL (0.11-0.59); #Neutrophils 3.7 thou/uL (1.40-6.50); %Basophils 1.8 % (0.0-1.0); %Eosinophils 1.4 % (0.0-10.0); %Lymphocytes 23.1 % (21.0-51.0); %Monocytes 14.4 % (0.0-10.0); %Neutrophils 59.2 % (42.0-75.0); Hemoglobin 13.7 g/dL (12.0-16.0); Mean Corpuscular HGB CONC 29.9 g/dL (32.0-36.0); Mean Corpuscular Hemoglobin 24.7 pg (27.0-31.0); Mean Corpuscular Volume 82.6 fL (78.0-98.0); Mean Platelet Volume 6.6 fL (7.4-10.4); Platelet Count 298 thou/uL (130-400); Red Blood Cell (RBC) Count 5.56 mill/uL (4.20-5.40); White Blood Cell (WBC) Count 6.3 thou/uL (4.8-10.8)
[2021-01-21 16:03] LABS: Anisocytosis SLIGHT = 6-15 cells (100X) (0-5/hpf); MDiff Complete? YES; Ovalocytes SLIGHT = 2-5 cells (100X) (0-1/hpf); Poikilocytosis SLIGHT = 6-15 cells (100X) (0-5/hpf); Target Cells SLIGHT = 2-5 cells (100X) (0-1/hpf); Tear Drops SLIGHT = 2-5 cells (100X) (0-1/hpf)
[2021-01-21 16:13] LABS: Carbon Dioxide 25 mmol/L (23-31); Chloride 100 mmol/L (98-107); Potassium 3.1 mmol/L (3.5-5.1); Sodium 136 mmol/L (136-145)
[2021-01-21 16:14] LABS: ALT (SGPT) 14 U/L (8-55); AST (SGOT) 15 U/L (5-34); Albumin 3.7 g/dL (3.4-4.8); Alkaline Phosphatase 77 U/L (40-110); Anion Gap 14 mmol/L (10-20); BUN (Urea Nitrogen) 8 mg/dL (9.8-20.1); Bilirubin, Total 0.5 mg/dL (0.2-1.2); Calc. Creatinine Clearance 0 mL/min (70-130); Calcium 10.1 mg/dL (7.8-10.44); Globulin 3.5 g/dL (2.4-3.5); Glucose 97 mg/dL (83-110); Protein, Total 7.2 g/dL (5.8-8.1)
[2021-01-21 16:15] LABS: Magnesium 1.6 mg/dL (1.6-2.6)
[2021-01-21] MEDS ORDERED: Potassium Chloride 20 MEQ TAB ONE (18:07)
[2021-01-21] MEDS ORDERED: Enoxaparin Sodium 80 MG/0.8 ML SYRINGE ONE (18:07)
== END 2021-01-21 18:40 | disposition short-term general hospital (02) ==
LOC: MADERS 15:20
DX: I20.0 Unstable angina (principal); I10 Essential (primary) hypertension; E87.6 Hypokalemia; I49.3 Ventricular premature depolarization; J44.9 Chronic obstructive pulmonary disease, unspecified; I25.2 Old myocardial infarction; G62.9 Polyneuropathy, unspecified; F17.210 Nicotine dependence, cigarettes, uncomplicated; Z79.82 Long term (current) use of aspirin; Z79.899 Other long term (current) drug therapy
CPT/HCPCS: 36415; 71045; 80053; 83735; 83880; 84484; 85025; 93005; 96372; J1650

== ENCOUNTER 2021-03-28 14:07 | Emergency (ER) | payer MEDICARE ==
[2021-03-28] MEDS ORDERED: Iopamidol 370 76% 100 ML VIAL IV ONE (14:08)
[2021-03-28] MEDS ORDERED: Sodium Chloride 0.9% 1,000 ML ONE (15:11)
[2021-03-28] MEDS ORDERED: Ondansetron PF 4 MG/2 ML Vial ONE (15:11)
[2021-03-28] MEDS ORDERED: Morphine 4 MG/ML VIAL ONE (15:11)
[2021-03-28 15:48] LABS: Hemoglobin 13.3 g/dL (12.0-16.0); Mean Corpuscular HGB CONC 31.1 g/dL (32.0-36.0); Mean Corpuscular Hemoglobin 28.6 pg (27.0-31.0); Mean Corpuscular Volume 91.8 fL (78.0-98.0); Red Blood Cell (RBC) Count 4.64 mill/uL (4.20-5.40); White Blood Cell (WBC) Count 6.7 thou/uL (4.8-10.8)
[2021-03-28 15:49] LABS: #Basophils 0.1 thou/uL (0.0-0.2); #Eosinphils 0.2 thou/uL (0.0-0.7); #Monocytes 0.5 thou/uL (0.11-0.59); #Neutrophils 4.6 thou/uL (1.40-6.50); %Basophils 1.7 % (0.0-1.0); %Lymphocytes 18.4 % (21.0-51.0); %Monocytes 7.9 % (0.0-10.0); MDiff Complete? YES; Manual Diff?? NO; Mean Platelet Volume 6.3 fL (7.4-10.4); Platelet Count 277 thou/uL (130-400); RBC Distribution Width 11.4 % (11.5-14.5)
[2021-03-28 15:50] LABS: ALT (SGPT) 10 U/L (8-55); AST (SGOT) 14 U/L (5-34); Albumin 3.4 g/dL (3.4-4.8); Alkaline Phosphatase 69 U/L (40-110); Anion Gap 16 mmol/L (10-20); BUN (Urea Nitrogen) 7 mg/dL (9.8-20.1); Bilirubin, Total 0.5 mg/dL (0.2-1.2); CK (CPK) 62 U/L (29-168); Calc. Creatinine Clearance 0 mL/min (70-130); Calcium 9.4 mg/dL (7.8-10.44); Carbon Dioxide 24 mmol/L (23-31); Chloride 97 mmol/L (98-107); Globulin 3.6 g/dL (2.4-3.5); Glucose 71 mg/dL (83-110); Lipase 11 U/L (8-78); Potassium 3.1 mmol/L (3.5-5.1); Sodium 134 mmol/L (136-145)
[2021-03-28 16:29] LABS: Bilirubin Large (Negative); Blood, Urine Negative (Negative); Clarity Clear (Clear); Glucose, Urine (Dipstick) Negative (Negative); Ketone, Urine 80 mg/dL (Negative); Leukocyte Negative (Negative); Nitrite Negative (Negative); Protein, Urine (Dipstick) 100 mg/dL (Neg-Trace); pH, Urine 6.5 (5.0-9.0)
[2021-03-28 16:33] LABS: Specific Gravity, Urine 1.032 (1.002-1.036)
[2021-03-28 16:34] LABS: Bacteria/HPF 1+ HPF (None Seen); RBC/HPF 0-3 HPF (0-3); Squamous Epithelial 0-3 HPF (0-3); WBC/HPF 0-3 HPF (0-3)
== END 2021-03-28 17:39 | disposition home or self-care (01) ==
LOC: MADERS 14:07
DX: R11.2 Nausea with vomiting, unspecified (principal); I10 Essential (primary) hypertension; J44.9 Chronic obstructive pulmonary disease, unspecified; I25.10 Atherosclerotic heart disease of native coronary artery without angina pectoris; I25.2 Old myocardial infarction; F17.210 Nicotine dependence, cigarettes, uncomplicated; Z79.899 Other long term (current) drug therapy; Z79.82 Long term (current) use of aspirin
CPT/HCPCS: 36415; 74177; 80053; 81003; 81015; 82550; 83605; 83690; 84484; 85025; 93005; 96374; 96375; J2270; J2405; J7050; Q9967

== ENCOUNTER 2021-07-14 | Emergency (ER) | payer MEDICARE ==
[2021-07-14 00:40] LABS: #Basophils 0.2 thou/uL (0.0-0.2); #Eosinphils 0.2 thou/uL (0.0-0.7); #Lymphocytes 2.6 thou/uL (1.20-3.40); #Monocytes 0.7 thou/uL (0.11-0.59); #Neutrophils 2.9 thou/uL (1.40-6.50); %Basophils 2.7 % (0.0-1.0); %Eosinophils 2.9 % (0.0-10.0); %Lymphocytes 39.9 % (21.0-51.0); %Monocytes 10.9 % (0.0-10.0); %Neutrophils 43.6 % (42.0-75.0); Anisocytosis SLIGHT = 6-15 cells (100X) (0-5/hpf); Hemoglobin 11.2 g/dL (12.0-16.0); MDiff Complete? YES; Mean Corpuscular HGB CONC 32.3 g/dL (32.0-36.0); Mean Corpuscular Hemoglobin 24.2 pg (27.0-31.0); Mean Corpuscular Volume 75.1 fL (78.0-98.0); Mean Platelet Volume 6.2 fL (7.4-10.4); Platelet Count 289 thou/uL (130-400); Platelet Morphology Comment Appears Adequate; RBC Distribution Width 19.5 % (11.5-14.5); Red Blood Cell (RBC) Count 4.61 mill/uL (4.20-5.40); Target Cells SLIGHT = 2-5 cells (100X) (0-1/hpf); White Blood Cell (WBC) Count 6.6 thou/uL (4.8-10.8)
[2021-07-14 00:47] LABS: ALT (SGPT) 22 U/L (8-55); AST (SGOT) 33 U/L (5-34); Albumin 3.6 g/dL (3.4-4.8); Alkaline Phosphatase 74 U/L (40-110); Anion Gap 14 mmol/L (10-20); BUN (Urea Nitrogen) 8 mg/dL (9.8-20.1); Bilirubin, Total 0.2 mg/dL (0.2-1.2); Calc. Creatinine Clearance 0 mL/min (70-130); Calcium 9.3 mg/dL (7.8-10.44); Carbon Dioxide 25 mmol/L (23-31); Chloride 105 mmol/L (98-107); Globulin 3.7 g/dL (2.4-3.5); Glucose 83 mg/dL (83-110); Potassium 3.4 mmol/L (3.5-5.1); Protein, Total 7.3 g/dL (5.8-8.1); Sodium 141 mmol/L (136-145)
[2021-07-14] MEDS ORDERED: Nitroglycerin 0.4 MG TAB 1 EACH ONE (00:48)
[2021-07-14] MEDS ORDERED: Aspirin Chewable 81 MG TAB ONE (00:48)
[2021-07-14] MEDS ORDERED: Fentanyl 100 MCG/2 ML VIAL ONE (00:48)
[2021-07-14 02:06] LABS: Bilirubin Negative (Negative); Blood, Urine Trace (Negative); Clarity Clear (Clear); Glucose, Urine (Dipstick) Negative (Negative); Ketone, Urine Negative (Negative); Leukocyte Negative (Negative); Nitrite Negative (Negative); Protein, Urine (Dipstick) Negative (Neg-Trace); Urobilinogen 0.2 mg/dL (Less than 2); pH, Urine 5.5 (5.0-9.0)
[2021-07-14 02:07] LABS: RBC/HPF 0-3 HPF (0-3); Specific Gravity, Urine 1.005 (1.002-1.036); Squamous Epithelial 0-3 HPF (0-3); WBC/HPF None Seen HPF (0-3)
[2021-07-14 02:08] LABS: Amphetamine Not Detected (NotDetected); Barbiturates Screen Not Detected (NotDetected); Benzodiazepine Screen Not Detected (NotDetected); Cocaine Metabolite Screen Not Detected (NotDetected); Medtox Control Line Valid? VALID (VALID); Methadone Not Detected (NotDetected); Methamphetamine Not Detected (NotDetected); Opiate Screen Not Detected (NotDetected); Oxycodone Screen Not Detected (NotDetected); Phencyclidine (PCP) Not Detected (NotDetected); THC/Cannabinoid Screen Not Detected (NotDetected); Tricyclic Screen Not Detected (NotDetected)
== END 2021-07-14 02:59 | disposition short-term general hospital (02) ==
LOC: MADERS
DX: R07.89 Other chest pain (principal); I25.10 Atherosclerotic heart disease of native coronary artery without angina pectoris; J44.9 Chronic obstructive pulmonary disease, unspecified; I10 Essential (primary) hypertension; I25.2 Old myocardial infarction; F17.210 Nicotine dependence, cigarettes, uncomplicated; Z79.82 Long term (current) use of aspirin; Z79.02 Long term (current) use of antithrombotics/antiplatelets; Z79.899 Other long term (current) drug therapy
CPT/HCPCS: 71045; 71275; 80053; 80306; 81003; 81015; 82550; 83880; 84484; 85025; 85379; 93005; 96374; J3010

== ENCOUNTER 2021-10-25 20:10 | Emergency (ER) | payer OTHER ==
[2021-10-25] MEDS ORDERED: Ketorolac Tromethamine 30 MG/ML VIAL ONE (21:38)
[2021-10-25] MEDS ORDERED: traMADol HCl 50 MG TAB ONE (21:38)
== END 2021-10-25 21:25 | disposition home or self-care (01) ==
LOC: MADERS 20:10
DX: M19.011 Primary osteoarthritis, right shoulder (principal); J44.9 Chronic obstructive pulmonary disease, unspecified; I25.2 Old myocardial infarction; I25.10 Atherosclerotic heart disease of native coronary artery without angina pectoris; F17.210 Nicotine dependence, cigarettes, uncomplicated; Z79.82 Long term (current) use of aspirin; Z79.899 Other long term (current) drug therapy; Z79.01 Long term (current) use of anticoagulants
CPT/HCPCS: 96372; 99283; J1885

== ENCOUNTER 2021-11-10 13:30 | Emergency (ER) | payer MEDICARE ==
[~2021-11-10 13:30] MED LIST changes: +Iopamidol 370 76% 100 ML VIAL ONE; -Iopamidol 370 76% 125 ML VIAL FS ONE
[2021-11-10] MEDS ORDERED: Lactated Ringer's 1,000 ML ONE (14:09)
[2021-11-10] MEDS ORDERED: Lidocaine Viscous Sol 2% 15 ml UD Cup ONE (14:42)
[2021-11-10] MEDS ORDERED: Mag-Al Plus 1200 MG/1200 MG/120 MG/30 ML UDCUP ONE (14:42)
[2021-11-10 14:51] LABS: ALT (SGPT) 9 U/L (8-55); AST (SGOT) 14 U/L (5-34); Albumin 3.4 g/dL (3.4-4.8); Alkaline Phosphatase 54 U/L (40-110); Anion Gap 12 mmol/L (10-20); BUN (Urea Nitrogen) 7 mg/dL (9.8-20.1); Bilirubin, Total 0.4 mg/dL (0.2-1.2); Calc. Creatinine Clearance 0 mL/min (70-130); Calcium 9.3 mg/dL (7.8-10.44); Carbon Dioxide 24 mmol/L (23-31); Chloride 102 mmol/L (98-107); Estimated GFR 84; Globulin 3.8 g/dL (2.4-3.5); Glucose 102 mg/dL (83-110); Lipase 19 U/L (8-78); Protein, Total 7.2 g/dL (5.8-8.1); Sodium 134 mmol/L (136-145)
[2021-11-10 15:03] LABS: Bilirubin Small (Negative); Blood, Urine Negative (Negative); Glucose, Urine (Dipstick) Negative (Negative); Ketone, Urine Trace mg/dL (Negative); Leukocyte Trace (Negative); Nitrite Negative (Negative); Protein, Urine (Dipstick) 30 mg/dL (Neg-Trace); Specific Gravity, Urine 1.025 (1.005-1.030); pH, Urine 5.5 (5.0-9.0)
[2021-11-10 15:04] LABS: Clarity Cloudy (Clear)
[2021-11-10 15:07] LABS: RBC/HPF None Seen HPF (0-3)
[2021-11-10 15:08] LABS: Bacteria/HPF Rare-Few HPF (None Seen); Calcium Oxalate Crystals Rare HPF (None Seen); Mucous/LPF 1+ LPF (<2+); Yeast-Hyphae 1+ HPF (None Seen)
[2021-11-10 15:21] LABS: Anisocytosis SLIGHT = 6-15 cells (100X) (0-5/hpf); Hemoglobin 9.7 g/dL (12.0-16.0); Hypochromia SLIGHT = 6-15 cells (100X) (0-5/hpf); Lymphocytes 23 % (21-51); MDiff Complete? YES; Mean Corpuscular HGB CONC 30.1 g/dL (32.0-36.0); Mean Corpuscular Hemoglobin 21.3 pg (27.0-31.0); Mean Corpuscular Volume 70.6 fL (78.0-98.0); Mean Platelet Volume 7.8 fL (7.4-10.4); Metamyelocyte 1 % (0-0); Microcytosis SLIGHT = 6-15 cells (100X) (0-5/hpf); Monocytes 16 % (0-10); Neutrophil 42 % (42-75); Nucleated RBC 0 % (0); Platelet Count 336 thou/uL (130-400); Polychromasia SLIGHT = 2-3 cells (100X) (0-2/hpf); RBC Distribution Width 16.1 % (11.5-14.5); Reactive Lymphocytes 18 % (0-10); Red Blood Cell (RBC) Count 4.55 mill/uL (4.20-5.40); Target Cells SLIGHT = 2-5 cells (100X) (0-1/hpf); White Blood Cell (WBC) Count 4.2 thou/uL (4.8-10.8)
[2021-11-10 15:49] LABS: SARS-CoV-2 NAA Rapid Test Not Detected (NotDetected)
[2021-11-10 16:06] LABS: Magnesium 1.7 mg/dL (1.6-2.6)
== END 2021-11-10 16:35 | disposition home or self-care (01) ==
LOC: MADERS 13:30
DX: R42 Dizziness and giddiness (principal); B37.3 Candidiasis of vulva and vagina; R10.10 Upper abdominal pain, unspecified; Z20.822 Contact with and (suspected) exposure to COVID-19; I10 Essential (primary) hypertension; J44.9 Chronic obstructive pulmonary disease, unspecified; I25.2 Old myocardial infarction; G62.9 Polyneuropathy, unspecified; F17.210 Nicotine dependence, cigarettes, uncomplicated; Z79.82 Long term (current) use of aspirin; Z79.899 Other long term (current) drug therapy
CPT/HCPCS: 70450; 71045; 74177; 80053; 81003; 81015; 82550; 83605; 83690; 83735; 84484; 85025; 93005; 94760; 96360; J7120; Q9967

== ENCOUNTER 2021-12-09 08:41 | Emergency (ER) | payer MEDICARE ==
[2021-12-09] MEDS ORDERED: HYDROcodone/Acetaminophen 5/325 mg Tablet ONE (09:05)
[2021-12-09] MEDS ORDERED: Ondansetron ODT 4 MG TAB ONE (09:05)
[2021-12-09] MEDS ORDERED: Ketorolac Tromethamine 30 MG/ML VIAL ONE (09:05)
== END 2021-12-09 11:23 | disposition home or self-care (01) ==
LOC: MADERS 08:41
DX: S83.92XA Sprain of unspecified site of left knee, initial encounter (principal); M54.42 Lumbago with sciatica, left side; I10 Essential (primary) hypertension; J44.9 Chronic obstructive pulmonary disease, unspecified; I25.2 Old myocardial infarction; F17.210 Nicotine dependence, cigarettes, uncomplicated; Z79.899 Other long term (current) drug therapy; X58.XXXA Exposure to other specified factors, initial encounter
CPT/HCPCS: 72100; 72170; 96372; J1885; Q0162

== ENCOUNTER 2022-01-03 17:28 | Emergency (ER) | payer MEDICARE, OTHER ==
[2022-01-03] MEDS ORDERED: Aspirin 325 MG TAB ONE (18:01)
[2022-01-03] MEDS ORDERED: Nitroglycerin 0.4 MG TAB 1 EACH ONE (18:31)
[2022-01-03 18:40] LABS: ALT (SGPT) 23 U/L (8-55); AST (SGOT) 26 U/L (5-34); Albumin 3.4 g/dL (3.4-4.8); Alkaline Phosphatase 81 U/L (40-110); Anion Gap 16 mmol/L (10-20); BUN (Urea Nitrogen) Less than 4 mg/dL (9.8-20.1); Bilirubin, Total 0.2 mg/dL (0.2-1.2); Calc. Creatinine Clearance 0 mL/min (70-130); Calcium 9.2 mg/dL (7.8-10.44); Carbon Dioxide 23 mmol/L (23-31); Chloride 104 mmol/L (98-107); Estimated GFR 93; Globulin 3.8 g/dL (2.4-3.5); Glucose 93 mg/dL (83-110); Magnesium 1.6 mg/dL (1.6-2.6); Potassium 3.5 mmol/L (3.5-5.1); Protein, Total 7.2 g/dL (5.8-8.1); Sodium 139 mmol/L (136-145)
[2022-01-03 18:41] LABS: Anisocytosis SLIGHT = 6-15 cells (100X) (0-5/hpf); Eosinophils 2 % (0-10); Hemoglobin 10.4 g/dL (12.0-16.0); Hypochromia SLIGHT = 6-15 cells (100X) (0-5/hpf); Lymphocytes 35 % (21-51); MDiff Complete? YES; Mean Corpuscular HGB CONC 29.6 g/dL (32.0-36.0); Mean Corpuscular Hemoglobin 21.2 pg (27.0-31.0); Mean Corpuscular Volume 71.8 fL (78.0-98.0); Mean Platelet Volume 7.8 fL (7.4-10.4); Monocytes 14 % (0-10); Neutrophil 49 % (42-75); Nucleated RBC 1 % (0); Platelet Count 383 thou/uL (130-400); Platelet Morphology Comment Appears Adequate; RBC Distribution Width 19.3 % (11.5-14.5); Red Blood Cell (RBC) Count 4.87 mill/uL (4.20-5.40); Target Cells SLIGHT = 2-5 cells (100X) (0-1/hpf); White Blood Cell (WBC) Count 4.3 thou/uL (4.8-10.8)
[2022-01-03 18:42] LABS: Acetaminophen Less than 10.0 mcg/mL (10.0-30.0); Alcohol 26 mg/dL (Less than 10); Salicylate Less than 8.0 mg/dL (15.0-30.0)
[2022-01-03] MEDS ORDERED: Nitroglycerin 2% Ointment 1 INCH/1 GM Packet ONE ×2 (18:51→18:52)
[2022-01-03 19:07] LABS: Amphetamine Not Detected (NotDetected); Barbiturates Screen Not Detected (NotDetected); Benzodiazepine Screen Not Detected (NotDetected); Cocaine Metabolite Screen Not Detected (NotDetected); Medtox Control Line Valid? VALID (VALID); Methadone Not Detected (NotDetected); Methamphetamine Not Detected (NotDetected); Opiate Screen Not Detected (NotDetected); Oxycodone Screen Not Detected (NotDetected); Phencyclidine (PCP) Not Detected (NotDetected); THC/Cannabinoid Screen Not Detected (NotDetected); Tricyclic Screen Not Detected (NotDetected)
[2022-01-03] MEDS ORDERED: Ondansetron PF 4 MG/2 ML Vial ONE (23:45)
[2022-01-03] MEDS ORDERED: Lorazepam 2 MG/ML VIAL ONE (23:57)
[2022-01-04 00:05] LABS: Troponin I 0.029 ng/mL (< 0.028)
[2022-01-04 02:04] LABS: Bilirubin Negative (Negative); Blood, Urine Negative (Negative); Clarity Clear (Clear); Glucose, Urine (Dipstick) Negative (Negative); Ketone, Urine Negative (Negative); Leukocyte Negative (Negative); Nitrite Negative (Negative); Protein, Urine (Dipstick) Negative (Neg-Trace); Specific Gravity, Urine 1.015 (1.005-1.030); Urobilinogen 0.2 mg/dL (Less than 2)
[2022-01-04 03:00] LABS: Troponin I 0.028 ng/mL (< 0.028)
[2022-01-04] MEDS ORDERED: Clopidogrel Bisulfate 75 MG TAB ONE (07:13)
[2022-01-04] MEDS ORDERED: hydrALAZINE 10 MG TAB ONE ×2 (07:13→07:14)
[2022-01-04] MEDS ORDERED: Amlodipine 5 MG TAB ONE (07:13)
[2022-01-04] MEDS ORDERED: Carvedilol 6.25 MG TAB ONE (07:13)
[2022-01-04] MEDS ORDERED: Nicotine 7 MG PATCH ONE (08:30)
== END 2022-01-04 09:20 | disposition left against medical advice (07) ==
LOC: MADERS 17:28
DX: R07.89 Other chest pain (principal); R00.8 Other abnormalities of heart beat; I49.1 Atrial premature depolarization; I10 Essential (primary) hypertension; I25.10 Atherosclerotic heart disease of native coronary artery without angina pectoris; G62.9 Polyneuropathy, unspecified; J44.9 Chronic obstructive pulmonary disease, unspecified; I25.2 Old myocardial infarction; F17.210 Nicotine dependence, cigarettes, uncomplicated; Z79.82 Long term (current) use of aspirin; Z79.899 Other long term (current) drug therapy
CPT/HCPCS: 71045; 80053; 80306; 80307; 81003; 83690; 83735; 83880; 84484; 85025; 87086; 93005; 96374; 96375; J2060; J2405

== ENCOUNTER 2022-02-24 08:09 | Emergency (ER) | payer MEDICARE, OTHER ==
[2022-02-24] MEDS ORDERED: Nitroglycerin 2% Ointment 1 INCH/1 GM Packet ONE (08:55)
[2022-02-24] MEDS ORDERED: Meclizine HCl 25 MG TAB ONE (08:55)
[2022-02-24 08:58] LABS: Hemoglobin 10.6 g/dL (12.0-16.0); Mean Corpuscular HGB CONC 30.8 g/dL (32.0-36.0); Mean Corpuscular Hemoglobin 23.8 pg (27.0-31.0); Mean Corpuscular Volume 77.3 fl (78.0-98.0); Mean Platelet Volume 7.1 fL (7.4-10.4); Platelet Count 348 thou/uL (130-400); RBC Distribution Width 20.3 % (11.5-14.5); Red Blood Cell (RBC) Count 4.43 mill/uL (4.20-5.40); White Blood Cell (WBC) Count 5.6 thou/uL (4.8-10.8)
[2022-02-24 08:59] LABS: MDiff Complete? YES; Manual Diff?? YES
[2022-02-24 09:14] LABS: Band 2 % (5-11); Lymphocytes 30 % (21-51); Neutrophil 56 % (42-75)
[2022-02-24 09:15] LABS: Anisocytosis SLIGHT = 6-15 cells (100X) (0-5/hpf); Eosinophils 2 % (0-10); Monocytes 10 % (0-10); Platelet Morphology Comment Appears Adequate; Poikilocytosis SLIGHT = 6-15 cells (100X) (0-5/hpf)
[2022-02-24 09:28] LABS: ALT (SGPT) 7 U/L (8-55); AST (SGOT) 17 U/L (5-34); Albumin 3.1 g/dL (3.4-4.8); Alkaline Phosphatase 66 U/L (40-110); Anion Gap 14 mmol/L (10-20); BUN (Urea Nitrogen) 4 mg/dL (9.8-20.1); Bilirubin, Total 0.4 mg/dL (0.2-1.2); Calc. Creatinine Clearance 0 mL/min (70-130); Calcium 9.4 mg/dL (7.8-10.44); Carbon Dioxide 22 mmol/L (23-31); Chloride 100 mmol/L (98-107); Estimated GFR 94; Globulin 3.9 g/dL (2.4-3.5); Glucose 83 mg/dL (83-110); Lipase 9 U/L (8-78); Potassium 5.3 mmol/L (3.5-5.1); Sodium 131 mmol/L (136-145)
[2022-02-24 10:34] LABS: Bilirubin Negative (Negative); Blood, Urine Negative (Negative); Clarity Slightly Cloudy (Clear); Glucose, Urine (Dipstick) Negative (Negative); Ketone, Urine Negative (Negative); Leukocyte Negative (Negative); Nitrite Negative (Negative); Protein, Urine (Dipstick) Negative (Neg-Trace); Urobilinogen 0.2 mg/dL (Less than 2); pH, Urine 5.5 (5.0-9.0)
== END 2022-02-24 14:15 | disposition short-term general hospital (02) ==
LOC: MADERS 08:09
DX: R07.89 Other chest pain (principal); R42 Dizziness and giddiness; E87.5 Hyperkalemia; E87.1 Hypo-osmolality and hyponatremia; G93.89 Other specified disorders of brain; I25.10 Atherosclerotic heart disease of native coronary artery without angina pectoris; I10 Essential (primary) hypertension; J44.9 Chronic obstructive pulmonary disease, unspecified; Z79.899 Other long term (current) drug therapy; Z79.82 Long term (current) use of aspirin; F17.210 Nicotine dependence, cigarettes, uncomplicated
CPT/HCPCS: 70450; 71045; 80053; 81003; 83690; 84484; 85025; 93005; 94760

== ENCOUNTER 2022-08-07 16:15 | Emergency (ER) | payer OTHER ==
[2022-08-07 17:48] LABS: ALT (SGPT) Less than 7 U/L (8-55); AST (SGOT) 14 U/L (5-34); Albumin 2.9 g/dL (3.4-4.8); Alkaline Phosphatase 57 U/L (40-110); Anion Gap 14 mmol/L (10-20); BUN (Urea Nitrogen) 6 mg/dL (9.8-20.1); Bilirubin, Total 0.5 mg/dL (0.2-1.2); Calc. Creatinine Clearance 0 mL/min (70-130); Carbon Dioxide 26 mmol/L (23-31); Chloride 96 mmol/L (98-107); Estimated GFR 88; Globulin 3.1 g/dL (2.4-3.5); Glucose 82 mg/dL (83-110); Lipase 7 U/L (8-78); Potassium 3.7 mmol/L (3.5-5.1); Sodium 132 mmol/L (136-145)
[2022-08-07 17:51] LABS: Hemoglobin 13.2 g/dL (12.0-16.0); Mean Corpuscular HGB CONC 32.1 g/dL (32.0-36.0); Mean Corpuscular Hemoglobin 30.2 pg (27.0-31.0); Mean Corpuscular Volume 94.1 fl (78.0-98.0); Platelet Count 248 10x3/uL (130-400); Red Blood Cell (RBC) Count 4.37 mill/uL (4.20-5.40); White Blood Cell (WBC) Count 5.8 10x3/uL (4.8-10.8)
[2022-08-07 17:52] LABS: Band 1 % (5-11); Eosinophils 1 % (0-10); Lymphocytes 14 % (21-51); MDiff Complete? YES; Monocytes 7 % (0-10); Neutrophil 63 % (42-75); Platelet Morphology Comment Appears Adequate; RBC Morphology Normal; Reactive Lymphocytes 13 % (0-10)
[2022-08-07] MEDS ORDERED: Ibuprofen 600 MG TAB ONE (19:14)
== END 2022-08-07 19:25 | disposition home or self-care (01) ==
LOC: MADERS 16:15
DX: S20.20XA Contusion of thorax, unspecified, initial encounter (principal); I10 Essential (primary) hypertension; J44.9 Chronic obstructive pulmonary disease, unspecified; I25.10 Atherosclerotic heart disease of native coronary artery without angina pectoris; F17.210 Nicotine dependence, cigarettes, uncomplicated; W19.XXXA Unspecified fall, initial encounter; Y92.009 Unspecified place in unspecified non-institutional (private) residence as the place of occurrence of the external cause; Z79.82 Long term (current) use of aspirin; Z79.899 Other long term (current) drug therapy
CPT/HCPCS: 71260; 74177; 80053; 83690; 85025; Q9967

== ENCOUNTER 2022-12-19 08:58 | Emergency (ER) | payer OTHER ==
[2022-12-19] MEDS ORDERED: Aspirin Chewable 81 MG TAB ONE (09:46)
[2022-12-19 09:57] LABS: Hematocrit 48.7 % (36.0-47.0); Hemoglobin 15.7 g/dL (12.0-16.0); Mean Corpuscular HGB CONC 32.3 g/dL (32.0-36.0); Mean Corpuscular Hemoglobin 28.3 pg (27.0-31.0); Mean Corpuscular Volume 87.6 fl (78.0-98.0); Mean Platelet Volume 8.1 fL (7.4-10.4); Platelet Count 303 10x3/uL (130-400); RBC Distribution Width 13.3 % (11.5-14.5); Red Blood Cell (RBC) Count 5.56 mill/uL (4.20-5.40); White Blood Cell (WBC) Count 4.7 10x3/uL (4.8-10.8)
[2022-12-19 10:01] LABS: Eosinophils 1 % (0-10); Lymphocytes 26 % (21-51); MDiff Complete? YES; Manual Diff?? YES; Monocytes 8 % (0-10); Neutrophil 65 % (42-75)
[2022-12-19 10:02] LABS: Platelet Adequacy Comment Appears Adequate; RBC Morph Comment Within Normal Limits
[2022-12-19 10:06] LABS: ALT (SGPT) 7 U/L (8-55); AST (SGOT) 15 U/L (5-34); Albumin 3.4 g/dL (3.4-4.8); Alkaline Phosphatase 91 U/L (40-110); Anion Gap 15 mmol/L (10-20); BUN (Urea Nitrogen) 4 mg/dL (9.8-20.1); Bilirubin, Total 0.8 mg/dL (0.2-1.2); Calc. Creatinine Clearance 0 mL/min (70-130); Calcium 10.3 mg/dL (7.8-10.44); Carbon Dioxide 24 mmol/L (23-31); Chloride 97 mmol/L (98-107); Estimated GFR 93; Globulin 4.6 g/dL (2.4-3.5); Glucose 89 mg/dL (83-110); Potassium 4.2 mmol/L (3.5-5.1); Sodium 132 mmol/L (136-145)
[2022-12-19 10:07] LABS: Troponin I Less than 0.010 ng/mL (< 0.028)
[2022-12-19 14:07] LABS: Troponin I 0.021 ng/mL (< 0.028)
== END 2022-12-19 14:12 | disposition short-term general hospital (02) ==
LOC: MADERS 08:58
DX: R07.89 Other chest pain (principal); I25.10 Atherosclerotic heart disease of native coronary artery without angina pectoris; I25.2 Old myocardial infarction; J44.9 Chronic obstructive pulmonary disease, unspecified; G62.9 Polyneuropathy, unspecified; F17.210 Nicotine dependence, cigarettes, uncomplicated; Z95.5 Presence of coronary angioplasty implant and graft; Z79.82 Long term (current) use of aspirin; Z79.899 Other long term (current) drug therapy
CPT/HCPCS: 71045; 80053; 83880; 84484; 85025; 93005

== ENCOUNTER 2022-12-28 10:19 | Emergency (ER) | payer OTHER | END 2022-12-28 12:16 | disposition short-term general hospital (02) | LOC: MADERS 10:19 | DX: M79.661 Pain in right lower leg (principal); I25.10 Atherosclerotic heart disease of native coronary artery without angina pectoris; I10 Essential (primary) hypertension; J44.9 Chronic obstructive pulmonary disease, unspecified; Z79.899 Other long term (current) drug therapy; F17.210 Nicotine dependence, cigarettes, uncomplicated | CPT/HCPCS: 99284 ==

== ENCOUNTER 2023-01-30 18:18 | Inpatient (IN) | payer OTHER ==
[2023-01-30] MEDS ORDERED: Nitroglycerin 0.4 MG TAB (25 Tab Bottle) SL PRN (20:00)
[2023-01-30] MEDS ORDERED: Acetaminophen 650 MG Suppository PR PRN (20:02)
[2023-01-30] MEDS ORDERED: Acetaminophen/Codeine 30-300mg Tablet PO PRN ×2 (20:02→20:07)
[2023-01-30] MEDS ORDERED: Albuterol 200 PUFF (6.7GM INHALER) INH PRN (20:07)
[2023-01-30] MEDS: Cholecalciferol 1,000 UNITS (25 MCG) TAB PO SCH (20:17)
[2023-01-30] MEDS: Ranolazine 500 MG ER.TAB PO SCH (20:17)
[2023-01-30] MEDS: Ezetimibe 10 MG TAB PO SCH (20:18)
[2023-01-30] MEDS: hydrALAZINE 25 MG TAB PO SCH (20:18)
[2023-01-30] MEDS: Pregabalin 75 MG CAP PO SCH (20:19)
[2023-01-30] MEDS: Carvedilol 12.5 MG TAB PO SCH (20:19)
[2023-01-30] MEDS ORDERED: Ipratropium/Albuterol 3 ML NEB NEB PRN (22:40)
[2023-01-31] MEDS: Carvedilol 12.5 MG TAB PO SCH ×2 (08:43→19:59)
[2023-01-31] MEDS: Cholecalciferol 1,000 UNITS (25 MCG) TAB PO SCH ×2 (08:43→19:59)
[2023-01-31] MEDS: Potassium Chloride 20 MEQ TAB PO SCH (08:43)
[2023-01-31] MEDS: DULoxetine 30 MG CAP PO SCH (08:43)
[2023-01-31] MEDS: Clopidogrel Bisulfate 75 MG TAB PO SCH (08:43)
[2023-01-31] MEDS: Aspirin Chewable 81 MG TAB PO SCH (08:43)
[2023-01-31] MEDS: hydrALAZINE 25 MG TAB PO SCH ×2 (08:43→15:04)
[2023-01-31] MEDS: Ranolazine 500 MG ER.TAB PO SCH ×2 (08:43→19:59)
[2023-01-31] MEDS: Amlodipine 5 MG TAB PO SCH (08:44)
[2023-01-31] MEDS: Atorvastatin Calcium 40 MG TAB PO SCH (08:44)
[2023-01-31] MEDS ORDERED: Ondansetron ODT 4 MG TAB PO PRN (08:48)
[2023-01-31] MEDS ORDERED: Ondansetron ODT 4 MG TAB SL SCH (09:00)
[2023-01-31] MEDS ORDERED: FLU VACC QS2023(65UP)/MF59C/PF 60 MCG/0.5 ML SYRINGE IM ONE (09:00)
[2023-01-31] MEDS ORDERED: hydrALAZINE 25 MG TAB PO SCH (19:30)
[2023-01-31] MEDS: Pregabalin 75 MG CAP PO SCH (19:59)
[2023-01-31] MEDS: Ezetimibe 10 MG TAB PO SCH (19:59)
[2023-02-01 08:01] LABS: Sodium 132 mmol/L (136-145)
[2023-02-01 08:02] LABS: Anion Gap 10 mmol/L (10-20); BUN (Urea Nitrogen) 6 mg/dL (9.8-20.1); Calc. Creatinine Clearance 87 mL/min (70-130); Calcium 8.5 mg/dL (7.6-10.4); Carbon Dioxide 26 mmol/L (23-31); Chloride 99 mmol/L (98-107); Estimated GFR 98; Glucose 74 mg/dL (83-110); Potassium 3.2 mmol/L (3.5-5.1)
[2023-02-01 08:03] LABS: Hematocrit 25.3 % (36.0-47.0); Hemoglobin 8.3 g/dL (12.0-16.0); Mean Corpuscular Hemoglobin 27.4 pg (27.0-31.0); Red Blood Cell (RBC) Count 3.02 mill/uL (4.20-5.40); White Blood Cell (WBC) Count 10.4 10x3/uL (4.8-10.8)
[2023-02-01 08:04] LABS: #Basophils 0.1 thou/uL (0.0-0.2); #Lymphocytes 0.9 thou/uL (1.20-3.40); #Monocytes 1.1 thou/uL (0.11-0.59); #Neutrophils 8.3 thou/uL (1.40-6.50); %Basophils 0.6 % (0.0-1.0); %Eosinophils 0.5 % (0.0-10.0); %Lymphocytes 8.6 % (21.0-51.0); %Monocytes 10.5 % (0.0-10.0); %Neutrophils 79.7 % (42.0-75.0); Mean Corpuscular HGB CONC 32.6 g/dL (32.0-36.0); Mean Platelet Volume 6.7 fL (7.4-10.4); Platelet Count 310 10x3/uL (130-400); RBC Distribution Width 14.6 % (11.5-14.5)
[2023-02-01] MEDS: Ranolazine 500 MG ER.TAB PO SCH ×2 (08:34→20:34)
[2023-02-01] MEDS: Aspirin Chewable 81 MG TAB PO SCH (08:34)
[2023-02-01] MEDS: Cholecalciferol 1,000 UNITS (25 MCG) TAB PO SCH ×2 (08:34→20:38)
[2023-02-01] MEDS: Potassium Chloride 20 MEQ TAB PO SCH ×2 (08:34→17:07)
[2023-02-01] MEDS: Carvedilol 12.5 MG TAB PO SCH ×2 (08:34→20:34)
[2023-02-01] MEDS: DULoxetine 30 MG CAP PO SCH (08:34)
[2023-02-01] MEDS: Amlodipine 5 MG TAB PO SCH (08:34)
[2023-02-01] MEDS: Atorvastatin Calcium 40 MG TAB PO SCH (08:34)
[2023-02-01] MEDS: Clopidogrel Bisulfate 75 MG TAB PO SCH (08:34)
[2023-02-01] MEDS: hydrALAZINE 25 MG TAB PO SCH ×3 (08:35→20:34)
[2023-02-01] MEDS ORDERED: Cholestyramine/Aspartame 4 gm Packet PO SCH (18:30)
[2023-02-01] MEDS: Pregabalin 75 MG CAP PO SCH (20:33)
[2023-02-01] MEDS: Ezetimibe 10 MG TAB PO SCH (20:33)
[2023-02-01] MEDS: Ferrous Gluconate 324 MG TAB PO SCH (20:34)
[2023-02-01] MEDS: Heparin 5,000 UNITS/ML VIAL SC SCH (20:35)
[2023-02-02] MEDS ORDERED: Loperamide HCl 2 MG CAP PO SCH (01:15)
[2023-02-02 08:02] LABS: Anion Gap 9 mmol/L (10-20); BUN (Urea Nitrogen) 4 mg/dL (9.8-20.1); Calc. Creatinine Clearance 89 mL/min (70-130); Calcium 8.7 mg/dL (7.8-10.44); Carbon Dioxide 25 mmol/L (23-31); Chloride 100 mmol/L (98-107); Estimated GFR 99; Glucose 76 mg/dL (83-110); Potassium 3.4 mmol/L (3.5-5.1); Sodium 131 mmol/L (136-145)
[2023-02-02] MEDS: Potassium Chloride 20 MEQ TAB PO SCH ×2 (08:31→16:55)
[2023-02-02] MEDS: Amlodipine 5 MG TAB PO SCH (08:32)
[2023-02-02] MEDS: Ferrous Gluconate 324 MG TAB PO SCH ×2 (08:34→21:34)
[2023-02-02] MEDS: Ranolazine 500 MG ER.TAB PO SCH ×2 (08:34→21:33)
[2023-02-02] MEDS: Carvedilol 12.5 MG TAB PO SCH ×2 (08:34→21:33)
[2023-02-02] MEDS: Cholecalciferol 1,000 UNITS (25 MCG) TAB PO SCH ×2 (08:34→21:33)
[2023-02-02] MEDS: hydrALAZINE 25 MG TAB PO SCH ×3 (08:34→21:37)
[2023-02-02] MEDS: DULoxetine 30 MG CAP PO SCH (08:34)
[2023-02-02] MEDS: Aspirin Chewable 81 MG TAB PO SCH (08:35)
[2023-02-02] MEDS: Heparin 5,000 UNITS/ML VIAL SC SCH (08:35)
[2023-02-02] MEDS: Clopidogrel Bisulfate 75 MG TAB PO SCH (08:35)
[2023-02-02] MEDS: Atorvastatin Calcium 40 MG TAB PO SCH (08:35)
[2023-02-02] MEDS ORDERED: Cholestyramine/Aspartame 4 gm Packet PO SCH (21:00)
[2023-02-02] MEDS: Sodium Chloride 1 GM TAB PO SCH (21:32)
[2023-02-02] MEDS: Cholestyramine/Aspartame 4 gm Packet PO SCH (21:32)
[2023-02-02] MEDS: Ezetimibe 10 MG TAB PO SCH (21:33)
[2023-02-02] MEDS: Pregabalin 75 MG CAP PO SCH (21:34)
[2023-02-03 05:27] LABS: Hematocrit 25.4 % (36.0-47.0); Hemoglobin 8.3 g/dL (12.0-16.0); Mean Corpuscular HGB CONC 32.5 g/dL (32.0-36.0); Mean Corpuscular Hemoglobin 27.7 pg (27.0-31.0); Mean Corpuscular Volume 85.2 fl (78.0-98.0); Mean Platelet Volume 6.7 fL (7.4-10.4); Platelet Count 352 10x3/uL (130-400); RBC Distribution Width 14.9 % (11.5-14.5); Red Blood Cell (RBC) Count 2.98 mill/uL (4.20-5.40)
[2023-02-03 05:45] LABS: Anion Gap 9 mmol/L (10-20); BUN (Urea Nitrogen) 4 mg/dL (9.8-20.1); Calc. Creatinine Clearance 84 mL/min (70-130); Calcium 8.7 mg/dL (7.8-10.44); Carbon Dioxide 24 mmol/L (23-31); Chloride 102 mmol/L (98-107); Estimated GFR 97; Glucose 76 mg/dL (83-110); Potassium 3.8 mmol/L (3.5-5.1); Sodium 131 mmol/L (136-145)
[2023-02-03] MEDS: Sodium Chloride 1 GM TAB PO SCH ×3 (08:41→20:46)
[2023-02-03] MEDS: Megestrol Acetate 400 MG/10 ML UDCUP PO SCH (08:41)
[2023-02-03] MEDS: Ranolazine 500 MG ER.TAB PO SCH ×2 (08:41→20:44)
[2023-02-03] MEDS: Potassium Chloride 20 MEQ TAB PO SCH ×2 (08:41→17:17)
[2023-02-03] MEDS: hydrALAZINE 25 MG TAB PO SCH ×2 (08:42→15:12)
[2023-02-03] MEDS: Atorvastatin Calcium 40 MG TAB PO SCH (08:42)
[2023-02-03] MEDS: DULoxetine 30 MG CAP PO SCH (08:42)
[2023-02-03] MEDS: Amlodipine 5 MG TAB PO SCH (08:42)
[2023-02-03] MEDS: Ferrous Gluconate 324 MG TAB PO SCH ×2 (08:43→20:46)
[2023-02-03] MEDS: Carvedilol 12.5 MG TAB PO SCH ×2 (08:43→20:46)
[2023-02-03] MEDS: Clopidogrel Bisulfate 75 MG TAB PO SCH (08:43)
[2023-02-03] MEDS: Cholecalciferol 1,000 UNITS (25 MCG) TAB PO SCH ×2 (08:43→20:46)
[2023-02-03] MEDS: Aspirin Chewable 81 MG TAB PO SCH (08:43)
[2023-02-03] MEDS ORDERED: Lantiseptic Ointment 130 GM JAR TOP PRN (18:22)
[2023-02-03] MEDS: Pregabalin 75 MG CAP PO SCH (20:46)
[2023-02-03] MEDS: Ezetimibe 10 MG TAB PO SCH (20:46)
[2023-02-03] MEDS: Lantiseptic Ointment 130 GM JAR TOP SCH (20:56)
[2023-02-03] MEDS: Cholestyramine/Aspartame 4 gm Packet PO SCH (21:43)
[2023-02-04 07:21] LABS: Hematocrit 27.6 % (36.0-47.0); Hemoglobin 8.9 g/dL (12.0-16.0); Mean Corpuscular HGB CONC 32.1 g/dL (32.0-36.0); Mean Corpuscular Hemoglobin 27.7 pg (27.0-31.0); Mean Corpuscular Volume 86.3 fl (78.0-98.0); Mean Platelet Volume 6.5 fL (7.4-10.4); Platelet Count 354 10x3/uL (130-400); RBC Distribution Width 15.6 % (11.5-14.5); White Blood Cell (WBC) Count 11.6 10x3/uL (4.8-10.8)
[2023-02-04 07:39] LABS: Anion Gap 11 mmol/L (10-20); BUN (Urea Nitrogen) 4 mg/dL (9.8-20.1); Calc. Creatinine Clearance 81 mL/min (70-130); Calcium 8.9 mg/dL (7.8-10.44); Carbon Dioxide 23 mmol/L (23-31); Chloride 102 mmol/L (98-107); Estimated GFR 97; Glucose 66 mg/dL (83-110); Potassium 3.9 mmol/L (3.5-5.1); Sodium 132 mmol/L (136-145)
[2023-02-04] MEDS: Megestrol Acetate 400 MG/10 ML UDCUP PO SCH (08:39)
[2023-02-04] MEDS: Sodium Chloride 1 GM TAB PO SCH ×3 (08:39→20:28)
[2023-02-04] MEDS: Ranolazine 500 MG ER.TAB PO SCH ×2 (08:39→20:28)
[2023-02-04] MEDS: Ferrous Gluconate 324 MG TAB PO SCH ×2 (08:40→20:28)
[2023-02-04] MEDS: Potassium Chloride 20 MEQ TAB PO SCH ×2 (08:40→17:07)
[2023-02-04] MEDS: Clopidogrel Bisulfate 75 MG TAB PO SCH (08:40)
[2023-02-04] MEDS: Carvedilol 12.5 MG TAB PO SCH ×2 (08:40→20:28)
[2023-02-04] MEDS: Cholecalciferol 1,000 UNITS (25 MCG) TAB PO SCH ×2 (08:41→20:28)
[2023-02-04] MEDS: Aspirin Chewable 81 MG TAB PO SCH (08:41)
[2023-02-04] MEDS: DULoxetine 30 MG CAP PO SCH (08:41)
[2023-02-04] MEDS: Atorvastatin Calcium 40 MG TAB PO SCH (08:41)
[2023-02-04] MEDS: Amlodipine 5 MG TAB PO SCH (08:41)
[2023-02-04] MEDS: Lantiseptic Ointment 130 GM JAR TOP SCH ×2 (08:42→20:30)
[2023-02-04] MEDS: Loperamide HCl 2 MG CAP PO PRN (10:24)
[2023-02-04] MEDS: Ezetimibe 10 MG TAB PO SCH (20:28)
[2023-02-04] MEDS: Pregabalin 75 MG CAP PO SCH (20:29)
[2023-02-04] MEDS: Acetaminophen 325 MG TAB PO PRN (20:29)
[2023-02-04] MEDS: Cholestyramine/Aspartame 4 gm Packet PO SCH (20:30)
[2023-02-05] MEDS: Amlodipine 5 MG TAB PO SCH (08:34)
[2023-02-05] MEDS: Potassium Chloride 20 MEQ TAB PO SCH ×2 (08:34→16:58)
[2023-02-05] MEDS: Aspirin Chewable 81 MG TAB PO SCH (08:34)
[2023-02-05] MEDS: Carvedilol 12.5 MG TAB PO SCH ×2 (08:35→20:30)
[2023-02-05] MEDS: Atorvastatin Calcium 40 MG TAB PO SCH (08:35)
[2023-02-05] MEDS: Clopidogrel Bisulfate 75 MG TAB PO SCH (08:36)
[2023-02-05] MEDS: Cholecalciferol 1,000 UNITS (25 MCG) TAB PO SCH ×2 (08:36→20:28)
[2023-02-05] MEDS: DULoxetine 30 MG CAP PO SCH (08:36)
[2023-02-05] MEDS: Ferrous Gluconate 324 MG TAB PO SCH ×2 (08:37→20:28)
[2023-02-05] MEDS: Megestrol Acetate 400 MG/10 ML UDCUP PO SCH (08:38)
[2023-02-05] MEDS: Lantiseptic Ointment 130 GM JAR TOP SCH ×2 (08:38→20:31)
[2023-02-05] MEDS: Sodium Chloride 1 GM TAB PO SCH ×3 (08:39→20:28)
[2023-02-05] MEDS: Ranolazine 500 MG ER.TAB PO SCH ×2 (08:39→20:28)
[2023-02-05] MEDS: Ezetimibe 10 MG TAB PO SCH (20:28)
[2023-02-05] MEDS: Pregabalin 75 MG CAP PO SCH (20:28)
[2023-02-05] MEDS: Cholestyramine/Aspartame 4 gm Packet PO SCH (20:36)
[2023-02-06 07:17] LABS: #Basophils 0.1 thou/uL (0.0-0.2); #Eosinphils 0.1 thou/uL (0.0-0.7); #Lymphocytes 1.2 thou/uL (1.20-3.40); #Neutrophils 7.1 thou/uL (1.40-6.50); %Eosinophils 0.8 % (0.0-10.0); %Lymphocytes 12.4 % (21.0-51.0); %Monocytes 10.1 % (0.0-10.0); %Neutrophils 75.7 % (42.0-75.0); Hematocrit 30.6 % (36.0-47.0); Hemoglobin 9.6 g/dL (12.0-16.0); Mean Corpuscular HGB CONC 31.4 g/dL (32.0-36.0); Mean Corpuscular Hemoglobin 26.8 pg (27.0-31.0); Mean Corpuscular Volume 85.3 fl (78.0-98.0); Mean Platelet Volume 6.7 fL (7.4-10.4); Platelet Count 408 10x3/uL (130-400); RBC Distribution Width 15.4 % (11.5-14.5); Red Blood Cell (RBC) Count 3.58 mill/uL (4.20-5.40); White Blood Cell (WBC) Count 9.4 10x3/uL (4.8-10.8)
[2023-02-06 07:24] LABS: Anion Gap 9 mmol/L (10-20); BUN (Urea Nitrogen) Less than 4 mg/dL (9.8-20.1); Calc. Creatinine Clearance 79 mL/min (70-130); Calcium 8.8 mg/dL (7.8-10.44); Carbon Dioxide 23 mmol/L (23-31); Chloride 103 mmol/L (98-107); Estimated GFR 96; Glucose 92 mg/dL (83-110); Potassium 3.9 mmol/L (3.5-5.1); Sodium 131 mmol/L (136-145)
[2023-02-06] MEDS: Atorvastatin Calcium 40 MG TAB PO SCH (09:52)
[2023-02-06] MEDS: Potassium Chloride 20 MEQ TAB PO SCH ×2 (09:52→16:35)
[2023-02-06] MEDS: Aspirin Chewable 81 MG TAB PO SCH (09:52)
[2023-02-06] MEDS: Clopidogrel Bisulfate 75 MG TAB PO SCH (09:52)
[2023-02-06] MEDS: Carvedilol 12.5 MG TAB PO SCH ×2 (09:52→20:16)
[2023-02-06] MEDS: Amlodipine 5 MG TAB PO SCH (09:52)
[2023-02-06] MEDS: Cholecalciferol 1,000 UNITS (25 MCG) TAB PO SCH ×2 (09:52→20:16)
[2023-02-06] MEDS: DULoxetine 30 MG CAP PO SCH (09:56)
[2023-02-06] MEDS: Ranolazine 500 MG ER.TAB PO SCH ×2 (09:56→20:15)
[2023-02-06] MEDS: Sodium Chloride 1 GM TAB PO SCH ×3 (09:56→20:15)
[2023-02-06] MEDS: Megestrol Acetate 400 MG/10 ML UDCUP PO SCH (09:56)
[2023-02-06] MEDS: Lantiseptic Ointment 130 GM JAR TOP SCH ×2 (10:00→20:16)
[2023-02-06] MEDS: Ferrous Gluconate 324 MG TAB PO SCH ×2 (10:00→20:15)
[2023-02-06] MEDS: Pregabalin 75 MG CAP PO SCH (20:15)
[2023-02-06] MEDS: Ezetimibe 10 MG TAB PO SCH (20:15)
[2023-02-06] MEDS: Cholestyramine/Aspartame 4 gm Packet PO SCH (20:23)
[2023-02-07] MEDS: Megestrol Acetate 400 MG/10 ML UDCUP PO SCH (09:00)
[2023-02-07] MEDS: Carvedilol 12.5 MG TAB PO SCH ×2 (09:00→20:58)
[2023-02-07] MEDS: DULoxetine 30 MG CAP PO SCH (09:00)
[2023-02-07] MEDS: Atorvastatin Calcium 40 MG TAB PO SCH (09:00)
[2023-02-07] MEDS: Amlodipine 5 MG TAB PO SCH (09:00)
[2023-02-07] MEDS: Cholecalciferol 1,000 UNITS (25 MCG) TAB PO SCH ×2 (09:00→20:58)
[2023-02-07] MEDS: Aspirin Chewable 81 MG TAB PO SCH (09:00)
[2023-02-07] MEDS: Clopidogrel Bisulfate 75 MG TAB PO SCH (09:00)
[2023-02-07] MEDS: Ferrous Gluconate 324 MG TAB PO SCH ×2 (09:01→20:58)
[2023-02-07] MEDS: Lantiseptic Ointment 130 GM JAR TOP SCH ×2 (09:01→20:59)
[2023-02-07] MEDS: Potassium Chloride 20 MEQ TAB PO SCH ×2 (09:01→16:50)
[2023-02-07] MEDS: Ranolazine 500 MG ER.TAB PO SCH ×2 (09:01→20:57)
[2023-02-07] MEDS: Sodium Chloride 1 GM TAB PO SCH ×3 (09:02→20:58)
[2023-02-07] MEDS: Ezetimibe 10 MG TAB PO SCH (20:58)
[2023-02-07] MEDS: Pregabalin 75 MG CAP PO SCH (20:58)
[2023-02-07] MEDS: Cholestyramine/Aspartame 4 gm Packet PO SCH (21:04)
[2023-02-08] MEDS: Megestrol Acetate 400 MG/10 ML UDCUP PO SCH (09:07)
[2023-02-08] MEDS: Aspirin Chewable 81 MG TAB PO SCH (09:07)
[2023-02-08] MEDS: Atorvastatin Calcium 40 MG TAB PO SCH (09:07)
[2023-02-08] MEDS: Cholecalciferol 1,000 UNITS (25 MCG) TAB PO SCH ×2 (09:07→21:17)
[2023-02-08] MEDS: Ranolazine 500 MG ER.TAB PO SCH ×2 (09:07→21:17)
[2023-02-08] MEDS: Sodium Chloride 1 GM TAB PO SCH ×3 (09:08→21:17)
[2023-02-08] MEDS: DULoxetine 30 MG CAP PO SCH (09:08)
[2023-02-08] MEDS: Carvedilol 12.5 MG TAB PO SCH ×2 (09:08→21:17)
[2023-02-08] MEDS: Clopidogrel Bisulfate 75 MG TAB PO SCH (09:08)
[2023-02-08] MEDS: Amlodipine 5 MG TAB PO SCH (09:08)
[2023-02-08] MEDS: Ferrous Gluconate 324 MG TAB PO SCH ×2 (09:08→21:17)
[2023-02-08] MEDS: Potassium Chloride 20 MEQ TAB PO SCH ×2 (09:08→16:53)
[2023-02-08] MEDS: Lantiseptic Ointment 130 GM JAR TOP SCH ×2 (09:09→21:22)
[2023-02-08 10:36] VITALS: BMI 19.9
[2023-02-08] MEDS: Pregabalin 75 MG CAP PO SCH (21:17)
[2023-02-08] MEDS: Mag-Al Plus 1200 MG/1200 MG/120 MG/30 ML UDCUP PO PRN (21:18)
[2023-02-08] MEDS: Ezetimibe 10 MG TAB PO SCH (21:18)
[2023-02-08] MEDS: Cholestyramine/Aspartame 4 gm Packet PO SCH (21:25)
[2023-02-09] MEDS: Atorvastatin Calcium 40 MG TAB PO SCH (08:47)
[2023-02-09] MEDS: Megestrol Acetate 400 MG/10 ML UDCUP PO SCH (08:47)
[2023-02-09] MEDS: Ferrous Gluconate 324 MG TAB PO SCH ×2 (08:48→20:11)
[2023-02-09] MEDS: Carvedilol 12.5 MG TAB PO SCH ×2 (08:48→20:11)
[2023-02-09] MEDS: Amlodipine 5 MG TAB PO SCH (08:48)
[2023-02-09] MEDS: Sodium Chloride 1 GM TAB PO SCH ×3 (08:48→20:10)
[2023-02-09] MEDS: Potassium Chloride 20 MEQ TAB PO SCH ×2 (08:48→16:44)
[2023-02-09] MEDS: Ranolazine 500 MG ER.TAB PO SCH ×2 (08:48→20:10)
[2023-02-09] MEDS: Cholecalciferol 1,000 UNITS (25 MCG) TAB PO SCH ×2 (08:48→20:11)
[2023-02-09] MEDS: Clopidogrel Bisulfate 75 MG TAB PO SCH (08:48)
[2023-02-09] MEDS: DULoxetine 30 MG CAP PO SCH (08:48)
[2023-02-09] MEDS: Aspirin Chewable 81 MG TAB PO SCH (08:48)
[2023-02-09] MEDS: Lantiseptic Ointment 130 GM JAR TOP SCH ×2 (08:52→20:11)
[2023-02-09] MEDS: Pregabalin 75 MG CAP PO SCH (20:10)
[2023-02-09] MEDS: Ezetimibe 10 MG TAB PO SCH (20:11)
[2023-02-09] MEDS: Cholestyramine/Aspartame 4 gm Packet PO SCH (20:12)
[2023-02-10 07:57] LABS: Anion Gap 12 mmol/L (10-20); BUN (Urea Nitrogen) 5 mg/dL (9.8-20.1); Calc. Creatinine Clearance 69 mL/min (70-130); Carbon Dioxide 19 mmol/L (23-31); Chloride 106 mmol/L (98-107); Estimated GFR 94; Glucose 83 mg/dL (83-110); Potassium 4.1 mmol/L (3.5-5.1); Sodium 133 mmol/L (136-145)
[2023-02-10 08:10] LABS: Hematocrit 35.1 % (36.0-47.0); Hemoglobin 10.7 g/dL (12.0-16.0); Mean Corpuscular HGB CONC 30.5 g/dL (32.0-36.0); Mean Corpuscular Hemoglobin 26.6 pg (27.0-31.0); Mean Corpuscular Volume 87.3 fl (78.0-98.0); Platelet Count 390 10x3/uL (130-400); RBC Distribution Width 16.1 % (11.5-14.5); Red Blood Cell (RBC) Count 4.02 mill/uL (4.20-5.40); White Blood Cell (WBC) Count 7.8 10x3/uL (4.8-10.8)
[2023-02-10] MEDS: Cholecalciferol 1,000 UNITS (25 MCG) TAB PO SCH ×2 (09:07→20:16)
[2023-02-10] MEDS: Ferrous Gluconate 324 MG TAB PO SCH ×2 (09:07→20:16)
[2023-02-10] MEDS: Megestrol Acetate 400 MG/10 ML UDCUP PO SCH (09:07)
[2023-02-10] MEDS: Potassium Chloride 20 MEQ TAB PO SCH ×2 (09:07→16:57)
[2023-02-10] MEDS: Atorvastatin Calcium 40 MG TAB PO SCH (09:07)
[2023-02-10] MEDS: DULoxetine 30 MG CAP PO SCH (09:08)
[2023-02-10] MEDS: Aspirin Chewable 81 MG TAB PO SCH (09:08)
[2023-02-10] MEDS: Carvedilol 12.5 MG TAB PO SCH ×2 (09:08→20:16)
[2023-02-10] MEDS: Sodium Chloride 1 GM TAB PO SCH ×3 (09:08→20:16)
[2023-02-10] MEDS: Lantiseptic Ointment 130 GM JAR TOP SCH ×2 (09:08→20:15)
[2023-02-10] MEDS: Ranolazine 500 MG ER.TAB PO SCH ×2 (09:08→20:16)
[2023-02-10] MEDS: Clopidogrel Bisulfate 75 MG TAB PO SCH (09:08)
[2023-02-10] MEDS: Amlodipine 5 MG TAB PO SCH (09:08)
[2023-02-10] MEDS: Cholestyramine/Aspartame 4 gm Packet PO SCH (20:16)
[2023-02-10] MEDS: Ezetimibe 10 MG TAB PO SCH (20:16)
[2023-02-10] MEDS: Pregabalin 75 MG CAP PO SCH (20:16)
[2023-02-11] MEDS: Loperamide HCl 2 MG CAP PO PRN (02:19)
[2023-02-11] MEDS: Aspirin Chewable 81 MG TAB PO SCH (08:40)
[2023-02-11] MEDS: Clopidogrel Bisulfate 75 MG TAB PO SCH (08:40)
[2023-02-11] MEDS: Lantiseptic Ointment 130 GM JAR TOP SCH ×2 (08:40→20:30)
[2023-02-11] MEDS: Megestrol Acetate 400 MG/10 ML UDCUP PO SCH (08:40)
[2023-02-11] MEDS: Ranolazine 500 MG ER.TAB PO SCH ×2 (08:40→20:28)
[2023-02-11] MEDS: Atorvastatin Calcium 40 MG TAB PO SCH (08:41)
[2023-02-11] MEDS: Cholecalciferol 1,000 UNITS (25 MCG) TAB PO SCH ×2 (08:41→20:29)
[2023-02-11] MEDS: Ferrous Gluconate 324 MG TAB PO SCH ×2 (08:41→20:28)
[2023-02-11] MEDS: Potassium Chloride 20 MEQ TAB PO SCH ×2 (08:41→17:04)
[2023-02-11] MEDS: Amlodipine 5 MG TAB PO SCH (08:41)
[2023-02-11] MEDS: DULoxetine 30 MG CAP PO SCH (08:41)
[2023-02-11] MEDS: Carvedilol 12.5 MG TAB PO SCH ×2 (08:41→20:29)
[2023-02-11] MEDS: Sodium Chloride 1 GM TAB PO SCH ×3 (08:41→20:28)
[2023-02-11] MEDS: Pregabalin 75 MG CAP PO SCH (20:29)
[2023-02-11] MEDS: Ezetimibe 10 MG TAB PO SCH (20:29)
[2023-02-11] MEDS: Cholestyramine/Aspartame 4 gm Packet PO SCH (20:33)
[2023-02-12] MEDS: Ranolazine 500 MG ER.TAB PO SCH ×2 (09:06→20:50)
[2023-02-12] MEDS: Clopidogrel Bisulfate 75 MG TAB PO SCH (09:06)
[2023-02-12] MEDS: Ferrous Gluconate 324 MG TAB PO SCH ×2 (09:06→20:50)
[2023-02-12] MEDS: Potassium Chloride 20 MEQ TAB PO SCH ×2 (09:06→16:58)
[2023-02-12] MEDS: Megestrol Acetate 400 MG/10 ML UDCUP PO SCH (09:06)
[2023-02-12] MEDS: Sodium Chloride 1 GM TAB PO SCH ×3 (09:06→20:50)
[2023-02-12] MEDS: Aspirin Chewable 81 MG TAB PO SCH (09:06)
[2023-02-12] MEDS: DULoxetine 30 MG CAP PO SCH (09:06)
[2023-02-12] MEDS: Carvedilol 12.5 MG TAB PO SCH ×2 (09:07→20:50)
[2023-02-12] MEDS: Lantiseptic Ointment 130 GM JAR TOP SCH ×2 (09:07→20:55)
[2023-02-12] MEDS: Cholecalciferol 1,000 UNITS (25 MCG) TAB PO SCH ×2 (09:07→20:50)
[2023-02-12] MEDS: Atorvastatin Calcium 40 MG TAB PO SCH (09:07)
[2023-02-12] MEDS: Amlodipine 5 MG TAB PO SCH (09:07)
[2023-02-12] MEDS: Ezetimibe 10 MG TAB PO SCH (20:49)
[2023-02-12] MEDS: Pregabalin 75 MG CAP PO SCH (20:49)
[2023-02-12] MEDS: Cholestyramine/Aspartame 4 gm Packet PO SCH (20:51)
[2023-02-13] MEDS: Ranolazine 500 MG ER.TAB PO SCH ×2 (08:50→20:16)
[2023-02-13] MEDS: Clopidogrel Bisulfate 75 MG TAB PO SCH (08:50)
[2023-02-13] MEDS: Sodium Chloride 1 GM TAB PO SCH ×3 (08:50→20:17)
[2023-02-13] MEDS: Aspirin Chewable 81 MG TAB PO SCH (08:50)
[2023-02-13] MEDS: Cholecalciferol 1,000 UNITS (25 MCG) TAB PO SCH ×2 (08:51→20:17)
[2023-02-13] MEDS: Atorvastatin Calcium 40 MG TAB PO SCH (08:51)
[2023-02-13] MEDS: Carvedilol 12.5 MG TAB PO SCH ×2 (08:51→20:17)
[2023-02-13] MEDS: Amlodipine 5 MG TAB PO SCH (08:51)
[2023-02-13] MEDS: DULoxetine 30 MG CAP PO SCH (08:51)
[2023-02-13] MEDS: Ferrous Gluconate 324 MG TAB PO SCH ×2 (08:51→20:17)
[2023-02-13] MEDS: Megestrol Acetate 400 MG/10 ML UDCUP PO SCH ×2 (08:51→20:16)
[2023-02-13] MEDS: Potassium Chloride 20 MEQ TAB PO SCH (08:51)
[2023-02-13] MEDS: Lantiseptic Ointment 130 GM JAR TOP SCH ×2 (08:52→20:19)
[2023-02-13] MEDS: Acetaminophen 325 MG TAB PO PRN (11:38)
[2023-02-13] MEDS: Mag-Al Plus 1200 MG/1200 MG/120 MG/30 ML UDCUP PO PRN (11:39)
[2023-02-13] MEDS: Potassium Chloride 10 MEQ TAB PO SCH (16:59)
[2023-02-13 19:44] VITALS: TEMP 98.4
[2023-02-13] MEDS: Ezetimibe 10 MG TAB PO SCH (20:16)
[2023-02-13] MEDS: Pregabalin 75 MG CAP PO SCH (20:17)
[2023-02-13] MEDS: Cholestyramine/Aspartame 4 gm Packet PO SCH (20:18)
[2023-02-14] MEDS: Aspirin Chewable 81 MG TAB PO SCH (08:17)
[2023-02-14] MEDS: Amlodipine 5 MG TAB PO SCH (08:17)
[2023-02-14] MEDS: Carvedilol 12.5 MG TAB PO SCH (08:19)
[2023-02-14] MEDS: Cholecalciferol 1,000 UNITS (25 MCG) TAB PO SCH (08:19)
[2023-02-14] MEDS: Ferrous Gluconate 324 MG TAB PO SCH (08:19)
[2023-02-14] MEDS: DULoxetine 30 MG CAP PO SCH (08:19)
[2023-02-14] MEDS: Sodium Chloride 1 GM TAB PO SCH (08:19)
[2023-02-14] MEDS: Potassium Chloride 10 MEQ TAB PO SCH (08:19)
[2023-02-14] MEDS: Atorvastatin Calcium 40 MG TAB PO SCH (08:19)
[2023-02-14] MEDS: Clopidogrel Bisulfate 75 MG TAB PO SCH (08:19)
[2023-02-14] MEDS: Lantiseptic Ointment 130 GM JAR TOP SCH (08:20)
[2023-02-14] MEDS: Ranolazine 500 MG ER.TAB PO SCH (08:20)
[2023-02-14] MEDS: Megestrol Acetate 400 MG/10 ML UDCUP PO SCH (08:20)
[2023-02-14 08:21] VITALS: BP 99/61
== END 2023-02-14 13:15 | disposition home or self-care (01) | DRG 948 ==
LOC: MADMS 18:18
PROVIDERS: ADMIT Family Medicine; ATTEND Family Medicine
DX: R53.1 Weakness (principal); D62 Acute posthemorrhagic anemia; Z68.1 Body mass index [BMI] 19.9 or less, adult; K92.1 Melena; E44.1 Mild protein-calorie malnutrition; I25.10 Atherosclerotic heart disease of native coronary artery without angina pectoris; J44.9 Chronic obstructive pulmonary disease, unspecified; Z66 Do not resuscitate; E78.5 Hyperlipidemia, unspecified; I10 Essential (primary) hypertension; G62.9 Polyneuropathy, unspecified; I73.9 Peripheral vascular disease, unspecified; F17.210 Nicotine dependence, cigarettes, uncomplicated; Z88.8 Allergy status to other drugs, medicaments and biological substances; Z79.899 Other long term (current) drug therapy; Z79.82 Long term (current) use of aspirin; Z79.01 Long term (current) use of anticoagulants; R19.7 Diarrhea, unspecified; R63.0 Anorexia; E87.6 Hypokalemia; R53.81 Other malaise
CPT/HCPCS: 36415; 36416; 80048; 82274; 85025; 85027; 87324; 87449; 90471; 90694; G0008; J1644; Q0162

== ENCOUNTER 2023-03-31 09:41 | Outpatient (CLI) | payer MEDICARE, OTHER ==
[2023-03-31 10:19] LABS: Mean Corpuscular HGB CONC 30.1 g/dL (32.0-36.0); Mean Corpuscular Hemoglobin 28.3 pg (27.0-31.0); Mean Corpuscular Volume 93.8 fl (78.0-98.0); Platelet Count 251 10x3/uL (130-400); Red Blood Cell (RBC) Count 4.59 mill/uL (4.20-5.40); White Blood Cell (WBC) Count 4.6 10x3/uL (4.8-10.8)
[2023-03-31 10:29] LABS: Anion Gap 10 mmol/L (10-20); BUN (Urea Nitrogen) 6 mg/dL (9.8-20.1); Calc. Creatinine Clearance 0 mL/min (70-130); Calcium 8.9 mg/dL (7.8-10.44); Carbon Dioxide 26 mmol/L (23-31); Chloride 107 mmol/L (98-107); Estimated GFR 86; Glucose 85 mg/dL (83-110); Potassium 4.1 mmol/L (3.5-5.1); Sodium 139 mmol/L (136-145)
== END 2023-03-31 09:42 | disposition home or self-care (01) ==
LOC: MADLABBHPM 09:41
PROVIDERS: ATTEND Family Medicine
DX: E87.6 Hypokalemia (principal); D64.9 Anemia, unspecified
CPT/HCPCS: 36415; 80048; 85027

== ENCOUNTER 2023-04-11 12:20 | Emergency (ER) | payer OTHER ==
[2023-04-11 15:08] LABS: Hematocrit 43.2 % (36.0-47.0); Hemoglobin 12.9 g/dL (12.0-16.0); Mean Corpuscular HGB CONC 29.9 g/dL (32.0-36.0); Mean Corpuscular Hemoglobin 28.3 pg (27.0-31.0); Mean Corpuscular Volume 94.5 fl (78.0-98.0); Mean Platelet Volume 7.6 fL (7.4-10.4); Platelet Count 302 10x3/uL (130-400); RBC Distribution Width 20.2 % (11.5-14.5); Red Blood Cell (RBC) Count 4.57 mill/uL (4.20-5.40); White Blood Cell (WBC) Count 5.1 10x3/uL (4.8-10.8)
[2023-04-11 15:09] LABS: Anion Gap 13 mmol/L (10-20); Anisocytosis SLIGHT = 6-15 cells (100X) (0-5/hpf); BUN (Urea Nitrogen) Less than 4 mg/dL (9.8-20.1); Band 2 % (5-11); Calc. Creatinine Clearance 0 mL/min (70-130); Calcium 8.6 mg/dL (7.8-10.44); Carbon Dioxide 27 mmol/L (23-31); Chloride 104 mmol/L (98-107); Eosinophils 1 % (0-10); Estimated GFR 92; Glucose 76 mg/dL (83-110); Hypochromia SLIGHT = 6-15 cells (100X) (0-5/hpf); Lymphocytes 44 % (21-51); MDiff Complete? YES; Monocytes 7 % (0-10); Neutrophil 46 % (42-75); Platelet Adequacy Comment Appears Adequate; Potassium 3.3 mmol/L (3.5-5.1); Sodium 141 mmol/L (136-145)
[2023-04-11 15:12] LABS: Troponin I 0.015 ng/mL (< 0.028)
[2023-04-11] MEDS ORDERED: Furosemide 40 MG TAB ONE (16:00)
[2023-04-11] MEDS ORDERED: Doxycycline 100 MG CAP ONE (16:00)
== END 2023-04-11 16:08 | disposition home or self-care (01) ==
LOC: MADERS 12:20
DX: R22.40 Localized swelling, mass and lump, unspecified lower limb (principal); J69.0 Pneumonitis due to inhalation of food and vomit; I10 Essential (primary) hypertension; J44.9 Chronic obstructive pulmonary disease, unspecified; E78.5 Hyperlipidemia, unspecified; F17.210 Nicotine dependence, cigarettes, uncomplicated; Z79.01 Long term (current) use of anticoagulants; Z79.899 Other long term (current) drug therapy; Z79.82 Long term (current) use of aspirin
CPT/HCPCS: 36415; 71046; 80048; 83880; 84484; 85025; 93005

== ENCOUNTER 2023-10-26 08:45 | Emergency (ER) | payer OTHER ==
[2023-10-26 09:42] LABS: Bilirubin Negative (Negative); Blood, Urine Small (Negative); Clarity Cloudy (Clear); Glucose, Urine (Dipstick) Negative (Negative); Ketone, Urine Negative (Negative); Leukocyte Large (Negative); Nitrite Negative (Negative); Protein, Urine (Dipstick) 30 mg/dL (Neg-Trace); Urobilinogen 0.2 mg/dL (Less than 2); pH, Urine 6.5 (5.0-9.0)
[2023-10-26 09:43] LABS: Bacteria/HPF 3+ HPF (None Seen); CAUTI Indications for Culture Pelvic or flank pain; RBC/HPF 0-3 HPF (0-3); Squamous Epithelial 0-3 HPF (0-3); WBC/HPF Greater than 50 HPF (0-3)
[2023-10-26 09:44] LABS: Urine Culture Reflex Yes Yes
== END 2023-10-26 10:19 | disposition home or self-care (01) ==
LOC: MADERS 08:45
DX: R82.71 Bacteriuria (principal); I10 Essential (primary) hypertension; E78.5 Hyperlipidemia, unspecified; J44.9 Chronic obstructive pulmonary disease, unspecified; F17.210 Nicotine dependence, cigarettes, uncomplicated; Z79.01 Long term (current) use of anticoagulants
CPT/HCPCS: 81001; 87077; 87086; 99283

== ENCOUNTER 2024-01-18 04:08 | Emergency (ER) | payer OTHER ==
[2024-01-18 04:45] LABS: Band 3 % (5-11); Eosinophils 1 % (0-10); Hematocrit 26.8 % (36.0-47.0); Hemoglobin 7.9 g/dL (12.0-16.0); Hypochromia SLIGHT = 6-15 cells (100X) (0-5/hpf); Lymphocytes 32 % (21-51); MDiff Complete? YES; Mean Corpuscular HGB CONC 29.4 g/dL (32.0-36.0); Mean Corpuscular Hemoglobin 23.8 pg (27.0-31.0); Mean Corpuscular Volume 80.9 fl (78.0-98.0); Mean Platelet Volume 9.7 fL (7.4-10.4); Monocytes 8 % (0-10); Neutrophil 56 % (42-75); Platelet Count 209 10x3/uL (130-400); RBC Distribution Width 15.8 % (11.5-14.5); Red Blood Cell (RBC) Count 3.31 mill/uL (4.20-5.40); White Blood Cell (WBC) Count 7.7 10x3/uL (4.8-10.8)
[2024-01-18 04:47] LABS: ALT (SGPT) 33 U/L (8-55); AST (SGOT) 36 U/L (5-34); Albumin 2.6 g/dL (3.4-4.8); Alkaline Phosphatase 93 U/L (40-110); Anion Gap 14 mmol/L (10-20); BUN (Urea Nitrogen) 12 mg/dL (9.8-20.1); Bilirubin, Total 0.4 mg/dL (0.2-1.2); Calc. Creatinine Clearance 0 mL/min (70-130); Calcium 8.7 mg/dL (7.8-10.44); Carbon Dioxide 20 mmol/L (23-31); Chloride 108 mmol/L (98-107); Estimated GFR 90; Globulin 4.1 g/dL (2.4-3.5); Glucose 105 mg/dL (83-110); Potassium 3.3 mmol/L (3.5-5.1); Protein, Total 6.7 g/dL (5.8-8.1); Sodium 139 mmol/L (136-145)
[2024-01-18 04:53] LABS: Troponin I 0.019 ng/mL (< 0.028)
[2024-01-18] MEDS ORDERED: Ondansetron PF 4 MG/2 ML Vial ONE (04:55)
[2024-01-18] MEDS ORDERED: Sodium Chloride 0.9% 1,000 ML ONE (04:55)
[2024-01-18] MEDS ORDERED: Morphine 4 MG/ML VIAL ONE (04:55)
[2024-01-18 05:25] LABS: Bilirubin Negative (Negative); Blood, Urine Trace (Negative); Clarity Slightly Cloudy (Clear); Glucose, Urine (Dipstick) Negative (Negative); Ketone, Urine Negative (Negative); Leukocyte Negative (Negative); Nitrite Negative (Negative); Protein, Urine (Dipstick) Negative (Neg-Trace); Specific Gravity, Urine 1.015 (1.005-1.030); Urobilinogen 0.2 mg/dL (Less than 2)
[2024-01-18 05:35] LABS: Bacteria/HPF Rare-Few HPF (None Seen); CAUTI Indications for Culture Pelvic or flank pain; RBC/HPF 0-3 HPF (0-3); WBC/HPF 0-3 HPF (0-3)
[2024-01-18 05:36] LABS: Urine Culture Reflex No No
[2024-01-18 08:21] LABS: Hematocrit 25.4 % (36.0-47.0); Hemoglobin 7.3 g/dL (12.0-16.0)
[2024-01-18] MEDS ORDERED: Potassium Chloride 20 MEQ TAB ONE (08:29)
[2024-01-18 08:33] LABS: Troponin I 0.018 ng/mL (< 0.028)
[2024-01-18 11:14] LABS: Hemoglobin 7.2 g/dL (12.0-16.0)
[2024-01-18 11:30] LABS: Troponin I 0.021 ng/mL (< 0.028)
[2024-01-18] MEDS ORDERED: Pantoprazole 40 MG VIAL ONE ×2 (12:53→12:56)
[2024-01-18] MEDS ORDERED: Sodium Chloride 0.9% 100 ML ONE (12:56)
== END 2024-01-18 15:19 | disposition short-term general hospital (02) ==
LOC: MADERS 04:08
DX: I25.110 Atherosclerotic heart disease of native coronary artery with unstable angina pectoris (principal); K92.2 Gastrointestinal hemorrhage, unspecified; I10 Essential (primary) hypertension; E78.5 Hyperlipidemia, unspecified; E11.9 Type 2 diabetes mellitus without complications; I25.2 Old myocardial infarction; F17.210 Nicotine dependence, cigarettes, uncomplicated; Z79.01 Long term (current) use of anticoagulants; Z79.82 Long term (current) use of aspirin; Z79.899 Other long term (current) drug therapy
CPT/HCPCS: 71045; 80053; 81001; 83880; 84484 ×2; 85014; 85018; 85025; 86850; 86900; 86901; 93005; 96374; 96375; 99285; J2272; J2405; J2470; J7030; 82274